=== PATIENT | male | born 1935 | race Caucasian/White ===

== ENCOUNTER 2017-02-09 10:29 | Inpatient (IN) | payer OTHER ==
[2017-02-09 10:36] VITALS: BMI 29.4
--- NOTE | 2017-02-09 10:45 | PDOC ---
History of Present Illness - General Chief Complaint: Respiratory Stated Complaint: SOB Time Seen by Provider: 02/09/17 10:44 History Source: Patient Exam Limitations: No Limitations - History of Present Illness Initial Comments: 02/09/17 11:18 Agent came to emergency department with acute onset of shortness of breath that woke him from sleep this morning approximately 3:00. has no chest pain, palpitations, fevers. Is a [id number] smoker, and was recently seen by an ENT doctor and prescribed nasal spray for his congestion. ears have been ""clogged" but does not feel this nasal spray is been helpful. Patient does not use home oxygen, does not have any albuterol treatments, has been told has COPD but does not take any medication for for relief. Is still currently smoking 02/09/17 11:28 Timing/Duration: reports: changing over time Severity: reports: moderate Associated Symptoms: reports: cough, nasal congestion, nasal drainage. denies: fever/chills Past History - Travel Traveled outside of the country in the last 30 days: No Close contact w/someone who was outside of country & ill: No - Past Medical History Allergies/Adverse Reactions: Allergies Allergy/AdvReac Type Severity Reaction Status Date / Time No Known Allergies Allergy Verified 02/09/17 10:36 Home Medications: Ambulatory Orders Levothyroxine [Synthroid -] 25 mcg PO DAILY 02/09/17 Lisinopril [Prinivil] 20 mg PO DAILY 02/09/17 Simvastatin [Zocor -] 20 mg PO HS 02/09/17 HTN: Yes Hypercholesterolemia: Yes Thyroid Disease: Yes - Psycho/Social/Smoking Cessation Hx Anxiety: No Suicidal Ideation: No Smoking History: Current every day smoker Number of Cigarettes Smoked Daily: 3 Information on smoking cessation initiated: No Hx Alcohol Use: No Drug/Substance Use Hx: No Substance Use Type: None Review of Systems - Review of Systems Able to Perform ROS?: Yes Is the patient limited Vietnamese proficient: Yes Constitutional: Yes: Symptoms Reported, See HPI, Malaise. No: Fever HEENTM: Yes: Symptoms Reported, See HPI, Ear Pain (ear congestion), Nose Congestion Respiratory: Yes: Symptoms reported, See HPI, Cough (moist productive cough of thick white phlegm), Shortness of Breath, SOB with Exertion. No: Wheezing Cardiac (ROS): Yes: See HPI. No: Symptoms Reported, Chest Pain, Irregular Heart Rate, Lightheadedness, Palpitations, Syncope ABD/GI: Yes: See HPI, Nausea. No: Symptoms Reported, Constipated, Diarrhea, Poor Appetite Musculoskeletal: Yes: Symptoms Reported Integumentary: Yes: See HPI. No: Symptoms Reported Neurological: Yes: See HPI. No: Symptoms reported, Headache, Numbness, Paresthesia All Other Systems: Reviewed and Negative *Physical Exam - Vital Signs Last Vital Signs Temp Pulse Resp BP Pulse Ox 98.8 F 95 H 20 151/99 96 02/09/17 10:33 02/09/17 10:33 02/09/17 10:33 02/09/17 10:33 02/09/17 10:33 - Physical Exam General Appearance: Yes: Nourished, Appropriately Dressed, Apparent Distress, Mild Distress HEENT: positive: Normal ENT Inspection, TMs Normal. negative: Pharynx Normal Neck: positive: Supple, Lymphadenopathy (R), Lymphadenopathy (L) Respiratory/Chest: positive: Lungs Clear (but very diminished, no wheezing or retractions noted no obvious respiratory distress, but very diminished). negative: Normal Breath Sounds Cardiovascular: positive: Regular Rhythm, Regular Rate ( ) Gastrointestinal/Abdominal: positive: Normal Bowel Sounds, Soft. negative: Tender Musculoskeletal: positive: Normal Inspection. negative: CVA Tenderness Extremity: positive: Normal Capillary Refill, Normal Inspection, Normal Range of Motion Integumentary: positive: Dry, Warm, Pale Neurologic: positive: crm solution architect II-XII NML intact, Fully Oriented, Alert, Normal Mood/ Affect, Normal Response, Motor Strength /5 ED Treatment Course - LABORATORY CBC & Chemistry Diagram: 02/09/17 11:22 02/09/17 11:22 Progress Note - Progress Note Progress Note: Shortness of breath, possible COPD exacerbation. Will obtain labs, provide duo nebs and steroids, and obtain chest x-ray. Medical Decision Making - Medical Decision Making 02/09/17 12:53 She states feels much improved, breathing is better after first DuoNeb and prednisone, continue pending some labs once results will discuss case with Dr. Mcdaniel for further instruction regarding admission. 02/09/17 13:04 All labs returned, noted CPK and cardiac MB elevated. EKG is sinus rhythm with low voltage with no obvious ST elevation or ischemia. No previous EKG to compare. Patient remains asymptomatic however due to laboratory elevations understands will need to be admitted to telemetry for further evaluation, serial enzymes and possible treatment. Discussed with family and patient understand need for admission 02/09/17 13:19 02/09/17 14:[address] Jose Gupta, cardiology per request of Dr. Foreman for Dr. Ambrose's service. Reviewed labs, and Lovenox 80 mg ordered, Lipitor 80 mg ordered, and we'll repeat enzymes/EKG at 4 PM. Patient updated to plan *DC/Admit/Observation/Transfer Diagnosis at time of Disposition: SOB (shortness of breath), Elevation of cardiac enzymes - Discharge Dispostion Admit: Yes - Referrals
[2017-02-09] MEDS ORDERED: ALBUTEROL SO4 2.5/IPRATROPIUM 0.5 INH SOL 3 ML VIAL.NEB. NEB ONE ×3 (11:17→12:52)
[2017-02-09] MEDS ORDERED: predniSONE 20 MG TABLET (UD) PO ONE (11:17)
[2017-02-09] MEDS ORDERED: predniSONE 20 MG TABLET (UD) ONE (11:31)
[2017-02-09 11:51] LABS: BASOPHIL 1.1 % (0-2.0); MCH 32.8 pg (25.7-33.7); MCHC 34.5 g/dl (32.0-35.9); MEAN CELL VOLUME 95.3 fl (80-96); NEUTROPHILS 64.7 % (42.8-82.8); PLATELET COUNT 181 K/MM3 (134-434); RDW 13.5 % (11.9-15.9)
[2017-02-09 12:22] LABS: ALBUMIN 4.2 g/dl (3.4-5.0); ANION GAP 8 (8-16); BILIRUBIN,TOTAL 0.8 mg/dL (0.2-1.0); CALCIUM 8.8 mg/dL (8.5-10.1); CO2 27 mmol/L (21-32); COCKROFT - GAULT 30.38; CREATININE 2.3 mg/dL (0.7-1.3); GLUCOSE,RANDOM 108 mg/dL (74-106); SGOT/AST 37 U/L (15-37); SGPT/ALT 22 U/L (12-78); TOT PROT 8.1 g/dl (6.4-8.2)
[2017-02-09 12:24] LABS: ALK PHOS 73 U/L (45-117); TROPONIN I < 0.02 ng/ml (0.00-0.05)
[2017-02-09] MEDS ORDERED: ASPIRIN 325 MG TABLET PO ONE (12:56)
[2017-02-09] MEDS ORDERED: ALBUTEROL SO4 0.083% IH SOL 2.5 MG/3 ML VIAL.NEB. NEB ONE (13:01)
[2017-02-09] MEDS ORDERED: ASPIRIN 325 MG TABLET ONE (13:02)
[2017-02-09] MEDS ORDERED: ATORVASTATIN CA 80 MG TABLET (FP) PO ONE (14:08)
[2017-02-09] MEDS ORDERED: ENOXAPARIN NA (PORCINE) 80 MG/0.8 ML DISP.SYRIN SQ SCH (14:15)
[2017-02-09] MEDS ORDERED: ENOXAPARIN NA (PORCINE) 80 MG/0.8 ML DISP.SYRIN SQ ONE (14:27)
[2017-02-09] MEDS ORDERED: ATORVASTATIN CA 80 MG TABLET (FP) ONE (14:27)
--- NOTE | 2017-02-09 14:29 | HP ---
CHIEF COMPLAINT: sob PCP: Dr. Foreman HISTORY OF PRESENT ILLNESS: 82 yea old male with PMHx htn, hld, lymphoma (11yrs ago), presents to the emergency room with shortness of breath that awoke him from sleep at 3 am. Patient sat up, which improved his symptoms, at around 9:30 am he called ambulance to take in to the ER. Denies chest pain, lightheadedness, weakness, dizziness, orthopnea, abdominal pain, leg swelling, fever, n/v/d. Patient is a 60yr smoker, currently smokes 4 cigarettes per day. Other complaint includes decreased hearing, gradual onset. Feels like ears are plugged. Was seen by ENT last week, prescribed spray that has not alleviated symtpoms ruthy, he was told it takes weeks to take effect. ER course was notable for: (1)troponin x1 negative; CKMB 11.12 (2)ECG NSR; prolonged QT , low voltage; no st-t wave changes; none to compare to (3)BUN/Cr 19/2.3 Recent Travel: no PAST MEDICAL HISTORY: htn, hld, hx of lymphoma s/p sx and chemotherapy, hypothyroid PAST SURGICAL HISTORY: lymphoma sx removal of tumor 2005; Social History:lives alone at home Smoking: yes 4 cigs per day/ 60year hx Alcohol:no Drugs: no Family History: Allergies No Known Allergies Allergy (Verified 02/09/17 10:36) HOME MEDICATIONS: Home Medications Medication Instructions Recorded Levothyroxine [Synthroid -] 25 mcg PO DAILY 02/09/17 Lisinopril [Prinivil] 20 mg PO DAILY 02/09/17 Simvastatin [Zocor -] 20 mg PO HS 02/09/17 REVIEW OF SYSTEMS CONSTITUTIONAL: Absent: fever, chills, diaphoresis, generalized weakness, malaise, loss of appetite, weight change HEENT: Absent: rhinorrhea, nasal congestion, throat pain, throat swelling, difficulty swallowing, mouth swelling, ear pain, eye pain, visual changes CARDIOVASCULAR: Absent: chest pain, syncope, palpitations, irregular heart rate, lightheadedness , peripheral edema RESPIRATORY: POsitive: shortness of breath Absent: cough, dyspnea with exertion, orthopnea, wheezing, stridor, hemoptysis GASTROINTESTINAL: Absent: abdominal pain, abdominal distension, nausea, vomiting, diarrhea, constipation, melena, hematochezia GENITOURINARY: Absent: dysuria, frequency, urgency, hesitancy, hematuria, flank pain, genital pain MUSCULOSKELETAL: Absent: myalgia, arthralgia, joint swelling, back pain, neck pain SKIN: Absent: rash, itching, pallor HEMATOLOGIC/IMMUNOLOGIC: Absent: easy bleeding, easy bruising, lymphadenopathy, frequent infections ENDOCRINE: Absent: unexplained weight gain, unexplained weight loss, heat intolerance, cold intolerance NEUROLOGIC: Absent: headache, focal weakness or paresthesias, dizziness, unsteady gait, seizure, mental status changes, bladder or bowel incontinence PSYCHIATRIC: Absent: anxiety, depression, suicidal or homicidal ideation, hallucinations. PHYSICAL EXAMINATION GENERAL: Awake, alert, and fully oriented, in no acute distress. HEAD: Normal with no signs of trauma. EYES: Pupils equal, round and reactive to light, extraocular movements intact, sclera anicteric, conjunctiva clear. No lid lag. EARS, NOSE, THROAT: Ears normal, nares patent, oropharynx clear without exudates. Moist mucous membranes. NECK: Normal range of motion, supple without lymphadenopathy, JVD, or masses. LUNGS: decreased breath sounds at bases , expiratory wheezes upper and middle lobes, and no crackles. No accessory muscle use. HEART: Regular rate and rhythm, normal S1 and S2 without murmur, rub or gallop. ABDOMEN: Soft, nontender, not distended, normoactive bowel sounds, no guarding, no rebound, no masses. No hepatomegaly or splenomegaly. MUSCULOSKELETAL: Normal range of motion at all joints. No bony deformities or tenderness. No CVA tenderness. UPPER EXTREMITIES: 2+ pulses, warm, well-perfused. No cyanosis. No clubbing. No peripheral edema. LOWER EXTREMITIES: 2+ pulses, warm, well-perfused. No calf tenderness. No peripheral edema. NEUROLOGICAL: Cranial nerves II-XII intact. Normal speech. Normal gait. PSYCHIATRIC: Cooperative. Good eye contact. Appropriate mood and affect. SKIN: Warm, dry, normal turgor, no rashes or lesions noted, normal capillary refill. ASSESSMENT/PLAN: This is a 82 yea old male with pmhx of htn, hld, lymphoma s/p sx and chemotherapy in 2005, presents to the emergengy room with sob while sleeping. Found to have elevated ckmb in ER. Acute kidney injury, no known kidney disease. # sob secondary to COPD from smoking ; r/o ACS (due to eleved CKMB) vs effect from kidney injury -troponin x1 wnl; ckmb 11.12 (elevated); trend f/u cardiac profile -asa -metoprolol 12.5 bid -statin -ecg ; no st t wave changes; low voltage; prolnged QT; none to compare; q waves -echo pending -1x full dose lovenox was given in ER -check TSH, lipid profile -albuterol/iptropium q4h prm ; 60mg prednisone given in ER #acute kidney injury: -baseline unknown -BUN/Cr 19/2.3 -denies trouble urinating or renal hx -gentle hydration -hold and nephrotoxic drugs -urine studies -bladder scan post void -renal US #current tobacco user: -counselled on smoking cessation/patch offered #hypothyroid s/p sx from lymphona 2005 -synthroid 50mcg qd FEN: Fluids: IVF 75mls NS Electrolytes: wnl Diet: npo after midnight VTE prophylaxis: lovenox in ER; none for now Disposition: cardiac monitoring Visit type - Emergency Visit Emergency Visit: Yes ED Registration Date: 02/09/17 Care time: The patient presented to the Emergency Department on the above date and was hospitalized for further evaluation of their emergent condition. - New Patient This patient is new to me today: Yes Date on this admission: 02/09/17 - Critical Care Critical Care patient: No
[2017-02-09] MEDS ORDERED: ALBUTEROL SO4 0.083% IH SOL 2.5 MG/3 ML VIAL.NEB. NEB PRN (14:40)
[2017-02-09] MEDS ORDERED: SODIUM CHLORIDE 1,000 ML IV SCH (14:45)
[2017-02-09] MEDS: SODIUM CHLORIDE 1,000 ML IV SCH (15:42)
--- NOTE | 2017-02-09 16:22 | PN ---
Teaching Attending Note Name of Resident: Indy Rosales ATTENDING PHYSICIAN STATEMENT I saw and evaluated the patient. I reviewed the resident's note and discussed the case with the resident. I agree with the resident's findings and plan as documented. SUBJECTIVE:c/o SOB that woke him out of sleep at 0300 this AM. he said he walked to his couch and several minutes later it settled down. he had another episode of sob which prompted him to call 911. no assoc symptoms of CP, numbness /tingling of extremities, or palpitations. never similar episodes in the past. was recently started on flonase by ENT for ear congestion? and completed zpack over 2 weeks ago. was in normal state of health days leading up to this AM. is able to walk 1 flight of stairs prior to becoming SOB. no cardiac workup in the past. no significant family hx of CAD (brother had CABG at 67) +smoker denies CP, dysuria, urinary frequency, N/V/C/D fever or chills had labs done last month at PMD office was told everything was good OBJECTIVE: Last Vital Signs Temp Pulse Resp BP Pulse Ox 98.8 F 90 18 139/90 98 02/09/17 10:33 02/09/17 12:10 02/09/17 12:10 02/09/17 12:10 02/09/17 12:10 General NAD CV S1 S2 RRR no murmur/rub/gallop Lungs CTA B/L no wheezing/rales/rhonchi Extremities no pedal edema ASSESSMENT AND PLAN: 82yo M with PMH HTN, dyslipidemia, hypothyroid and lymphoma s/p chemo (no RTx) presented to the ER and was admitted for further evaluation of their emergent condition 1. SOB- now resolved. CKMB elevated but CK is not proportionatly elevated and troponin negative. given this is 8 hours after presentation of SOB (which can be angina equivalent) low suspicion for cardiac etiology of cause. received lovenox and asa in the ED.(start betablocker to complete treatment for ACS if thats what ER considering) place on cardiac monitoring. trend cardiac markers Q6H. check lipid panel. check echo. cardio consulted. will wait on starting hep ggt until have uptrending troponins. will hold lovenox in the setting of APM 2. PAM- unknown Cr baseline. check urine studies, bladder scan, kidney u/s. low dose IVF. trend Cr. avoid nephrotoxic medications 3. hypothyroid- check tsh. cont LT4 4. HTN- controlled. cont home medications. 5. Lymphoma- did not receive RTx therapy. not on current therapy 6. DVT ppx- received lovenox
--- NOTE | 2017-02-09 17:12 | EKG ---
Test Reason : Blood Pressure : / mmHG Vent. Rate : 086 BPM Atrial Rate : 086 BPM P-R Int : 192 ms QRS Dur : 084 ms QT Int : 444 ms P-R-T Axes : 012 -61 056 degrees QTc Int : 531 ms NORMAL SINUS RHYTHM PULMONARY DISEASE PATTERN LEFT ANTERIOR FASCICULAR BLOCK CANNOT RULE OUT INFERIOR INFARCT (MASKED BY FASCICULAR BLOCK?) , AGE UNDETERMINED PROLONGED QT ABNORMAL ECG NO PREVIOUS ECGS AVAILABLE Confirmed by SHELLY MCCLAIN MD ([id number]) on 02/09/2017 5:11:37 PM Referred By: Confirmed By:SHELLY MCCLAIN MD
[2017-02-09 17:20] LABS: TROPONIN I < 0.02 ng/ml (0.00-0.05)
[2017-02-09] MEDS ORDERED: METOPROLOL TARTRATE 25 MG TABLET (FP) PO SCH (22:00)
[2017-02-09] MEDS ORDERED: ATORVASTATIN CA 10 MG TABLET (FP) PO SCH (22:00)
[2017-02-09] MEDS ORDERED: METOPROLOL TARTRATE 25 MG TABLET (FP) ONE (22:53)
[2017-02-10] MEDS ORDERED: LEVOTHYROXINE NA 25 MCG TABLET (FP) PO SCH (07:00)
[2017-02-10 07:15] LABS: BASOPHIL 0.4 % (0-2.0); EOSINOPHIL 0.1 % (0-4.5); MCH 33.4 pg (25.7-33.7); MCHC 34.9 g/dl (32.0-35.9); MEAN CELL VOLUME 95.8 fl (80-96); MEAN PLT VOLUME 6.4 fl (7.5-11.1); PLATELET COUNT 194 K/MM3 (134-434); RDW 13.3 % (11.9-15.9); WHITE BLOOD COUNT 7.7 K/mm3 (4.0-10.0)
[2017-02-10 07:28] LABS: BILIRUBIN,TOTAL 0.9 mg/dL (0.2-1.0); CALCIUM 8.3 mg/dL (8.5-10.1); COCKROFT - GAULT 30.38; CREATININE 2.3 mg/dL (0.7-1.3); MAGNESIUM 2.1 mg/dL (1.8-2.4); PHOSPHOROUS 2.8 mg/dL (2.5-4.9); TOT PROT 7.7 g/dl (6.4-8.2)
[2017-02-10 07:35] LABS: THYROID STIMULATING HORMONE 55.8 uIU/ml (0.358-3.74)
[2017-02-10 07:54] LABS: TROPONIN I < 0.02 ng/ml (0.00-0.05)
--- NOTE | 2017-02-10 08:42 | CON.CARD ---
Consult Consult Specialty:: cardio Referred by:: hospitalist Reason for Consultation:: sob - History of Present Illness Chief Complaint: sob History of Present Illness: 82 yo male here with sob. SOB woke him out of sleep on DOA. associated with intense anxiety/panic. no cp/tightness,heaviness/pressure. sx's improved after nebs and prednisone in ER (audible wheezing on exam) no tachycardia, sats normal on RA no more sob at present denies palpitations, leg swelling PMH: HTN HPL +active cigs (60 yrs) family hx of CAD (brother had CABG at 67) +smoker - Alcohol/Substance Use Hx Alcohol Use: No - Smoking History Smoking history: Current every day smoker Aproximately how many cigarettes per day: 3 Home Medications - Allergies Allergies/Adverse Reactions: Allergies Allergy/AdvReac Type Severity Reaction Status Date / Time No Known Allergies Allergy Verified 02/09/17 10:36 - Home Medications Home Medications: Ambulatory Orders Levothyroxine [Synthroid -] 25 mcg PO DAILY 02/09/17 Lisinopril [Prinivil] 20 mg PO DAILY 02/09/17 Simvastatin [Zocor -] 20 mg PO HS 02/09/17 Review of Systems - Review of Systems Constitutional: denies: Chills, Fever Eyes: denies: Eye Pain HENT: denies: Nasal Congestion Neck: denies: Stiffness Cardiovascular: denies: Palpitations Respiratory: denies: Hemoptysis Gastrointestinal: denies: Diarrhea, Rectal Bleeding Genitourinary: denies: Burning, Hematuria Musculoskeletal: denies: Muscle Pain Integumentary: denies: Rash Neurological: denies: Numbness, Seizure, Syncope Endocrine: denies: Excessive Sweating Hematology/Lymphatic: denies: Excessive Bleeding Vital Signs: Vital Signs Temperature 98.0 F 02/09/17 19:31 Pulse Rate 85 02/10/17 07:27 Respiratory Rate 18 02/10/17 07:27 Blood Pressure 157/85 02/10/17 07:27 O2 Sat by Pulse Oximetry (%) 95 02/10/17 07:27 Constitutional: Yes: Well Nourished, No Distress Eyes: No: Sclera Icterus HENT: No: Nasal Congestion Neck: No: Decreased ROM Respiratory: Yes: CTA Bilaterally. No: Accessory Muscle Use, Wheezes (faint L base) Gastrointestinal: Yes: Normal Bowel Sounds. No: Distention, Hepatomegaly, Palpable Mass, Tenderness Cardiovascular: Yes: Regular Rate and Rhythm JVD: No Carotid Bruit: No PMI: Non-Displaced Heart Sounds: Yes: S1, S2. No: Gallop Murmur: No: Systolic Murmur, Diastolic Murmur Musculoskeletal: Yes: Other (No kyphosis) Extremities: No: Cold, Cyanosis Edema: No Peripheral Pulses: 2+ Left Carotid, 2+ Right Carotid, 2+ Left Doralis Pedis, 2+ Right Dorsalis Pedis Integumentary: No: Jaundice Neurological: Yes: Alert, Oriented (x3) Psychiatric: No: Agitated - Other Data Labs, Other Data: CBC, BMP 02/10/17 06:30 02/10/17 06:30 Troponin, BNP 02/09/17 02/10/17 16:40 06:30 Troponin I < 0.02 < 0.02 Troponin, BNP 02/09/17 02/10/17 16:40 06:30 Troponin I < 0.02 < 0.02 Laboratory Tests 02/09/17 02/09/17 02/10/17 11:22 16:40 06:30 WBC 7.7 D Hgb 13.8 Plt Count 194 Sodium Potassium Carbon Dioxide BUN Creatinine AST ALT Creatine Kinase 815 H 819 H CK-MB (CK-2) 11.122 H 10.021 H Troponin I < 0.02 < 0.02 B-Natriuretic Peptide 102.61 Cholesterol Total LDL Cholesterol HDL Cholesterol TSH 02/10/17 02/10/17 06:30 06:30 WBC Hgb Plt Count Sodium 138 Potassium 5.0 Carbon Dioxide 24 BUN 24 H D Creatinine 2.3 H AST 47 H D ALT 22 Creatine Kinase 1254 H D CK-MB (CK-2) Troponin I < 0.02 B-Natriuretic Peptide Cholesterol 216 H Total LDL Cholesterol 146 H HDL Cholesterol 54 TSH 55.80 H ekg 1: NSR, L axis; no path Qs; nonsp TWAs (no old) ekg 2: no change Imaging - Results Chest X-ray: Report Reviewed (clear) Assessment/Plan acute SOB/PND: -sx's improved with nebs and prednisone in ER--likely copd (active smoker), ? bronchospastic component -BNP low (102) -cxr with clear lungs and pleura -no evidence chf on exam -troponin negative x 3--THIS RULES OUT NSTEMI, regardless of what cpk and MB fraction are (CK is coming from skeletal muscle) -not impossible that unstable angina could present this way, though sx response to airways tx makes copd/bronchospasm more likely -will do dobutamine nuclear stress test prior to discharge given high clinical risk factor burden for CAD (received short acting metoprolol (tartrate) at 11pm last night--should be ok for dobutamine today) -f/u echo -given no other clinical findings suggestive of PE, and no recent immobility, will defer V/Q--check LE vein duplex to r/o DVT -copd tx (+/- pulm consult) per hospitalist HTN: -bp controlled -hold home MALKA given unknown chronicity of hi creatinine -start amlodipine (after stress test completed) hypothyroid: -TSH 50 -per hospitalist HPL: -lipids not well controlled (LDL 140s) -on simva 20 at home--? if taking -change to atorva 20 (more potent) renal insufficiency: -creat 2.3 here, no priors -trend labs -workup (+/- renal consult) per hospitalist + active cigs -risks reviewed, cessation advised lymphoma: -? activity of dz/prior tx
[2017-02-10] MEDS ORDERED: amLODIPine BESYLATE 5 MG TABLET (FP) PO SCH (10:00)
[2017-02-10] MEDS ORDERED: LEVOTHYROXINE NA 25 MCG TABLET (FP) ONE (10:08)
[2017-02-10] MEDS ORDERED: amLODIPine BESYLATE 5 MG TABLET (FP) ONE (10:08)
[2017-02-10] MEDS ORDERED: DIPYRIDAMOLE 50 MG/10 ML VIAL IVPB ONE (11:25)
--- NOTE | 2017-02-10 11:25 | EKG ---
Test Reason : Blood Pressure : / mmHG Vent. Rate : 092 BPM Atrial Rate : 092 BPM P-R Int : 200 ms QRS Dur : 082 ms QT Int : 358 ms P-R-T Axes : 004 -63 042 degrees QTc Int : 442 ms POOR DATA QUALITY, INTERPRETATION MAY BE ADVERSELY AFFECTED NORMAL SINUS RHYTHM LEFT ANTERIOR FASCICULAR BLOCK POSSIBLE LATERAL INFARCT , AGE UNDETERMINED CANNOT RULE OUT INFERIOR INFARCT (CITED ON OR BEFORE 09-FEB-2017) ABNORMAL ECG WHEN COMPARED WITH ECG OF 09-FEB-2017 11:35, QT HAS SHORTENED Confirmed by JEANE ZAPATA MD ([id number]) on 02/10/2017 11:25:21 AM Referred By: Confirmed By:JEANE ZAPATA MD
[2017-02-10] MEDS ORDERED: ALBUTEROL SO4 0.083% IH SOL 2.5 MG/3 ML VIAL.NEB. NEB ONE (14:10)
[2017-02-10 14:30] LABS: FREE T4 0.38 ng/dl (0.76-1.16)
[2017-02-10] MEDS ORDERED: WATER IVPB ONE (15:15)
[2017-02-10] MEDS ORDERED: DIPYRIDAMOLE STRESS TEST IVPB ONE (15:15)
[2017-02-10] MEDS ORDERED: DEXTROSE 5% IVPB ONE (15:15)
[2017-02-10] MEDS: SODIUM CHLORIDE 1,000 ML IV SCH ×2 (15:57→19:30)
--- NOTE | 2017-02-10 17:11 | PN ---
Teaching Attending Note Name of Resident: Indy Rosales ATTENDING PHYSICIAN STATEMENT I saw and evaluated the patient. I reviewed the resident's note and discussed the case with the resident. I agree with the resident's findings and plan as documented. SUBJECTIVE:currently asymptomatic. states SOB has resolved. denies difficulty urinating. denies CP, fever, chills, cough, hematuria, N/V/C/D OBJECTIVE: Last Vital Signs Temp Pulse Resp BP Pulse Ox 98.0 F 74 19 125/89 95 02/09/17 19:31 02/10/17 13:45 02/10/17 13:45 02/10/17 13:45 02/10/17 13:45 General NAD CV S1 S2 RRR no murmur/rub/gallop Lungs CTA B/L no wheezing/rales/rhonchi abdomen soft NT/ND no suprapubic tenderness/distention. obese ASSESSMENT AND PLAN: 82yo M with PMH HTN, dyslipidemia, hypothyroid and lymphoma s/p chemo (no RTx) presented to the ER and was admitted for further evaluation of their emergent condition 1. SOB- now resolved. CKMB stable. troponins neg x3. stress test done and negative for ischemia. echo showing diastolic relaxation. cardio on board. optimize medications. statin increased. can d/c tele monitor. 2. PAM- Cx 1.16 last year per PMD. FeNa <1. u/s showing R sided hydro. bladder scan of 370 after putting "out a good amount" will place lucas and monitor I&O. likely obstructed. cont low dose IVF. repeat Cr. will need to consider CT to evlaute for obstruction 3. hypothyroid- TSH 55. claims medication compliance. increased synthroid to 50mcg 4. HTN- controlled. cont home medications. 5. Lymphoma- did not receive RTx therapy. not on current therapy 6. DVT ppx- received lovenox
[2017-02-10] MEDS ORDERED: ALBUTEROL SO4 0.083% IH SOL 2.5 MG/3 ML VIAL.NEB. NEB PRN (18:27)
--- NOTE | 2017-02-10 20:33 | PN ---
Physical Exam: SUBJECTIVE: Patient seen and examined, no new complaints, sob improved. Stress test today. OBJECTIVE: Vital Signs Period Temp Pulse Resp BP Sys/Hargrove Pulse Ox Last 24 Hr 97.9 F 57-85 17-19 122-157/75-99 95-96 GENERAL: The patient is awake, alert, and fully oriented, in no acute distress. HEAD: Normal with no signs of trauma. EYES: PERRL, extraocular movements intact, sclera anicteric, conjunctiva clear. No ptosis. ENT: Ears normal, nares patent, oropharynx clear without exudates, moist mucous membranes. NECK: Trachea midline, full range of motion, supple. LUNGS: decreased breath sounds scattered wheeze on expiration HEART: Regular rate and rhythm, S1, S2 without murmur, rub or gallop. ABDOMEN: Soft, nontender, nondistended, normoactive bowel sounds, no guarding, no rebound, no hepatosplenomegaly, no masses. EXTREMITIES: 2+ pulses, warm, well-perfused, no edema. NEUROLOGICAL: Cranial nerves II through XII grossly intact. Normal speech, gait not observed. PSYCH: Normal mood, normal affect. SKIN: Warm, dry, normal turgor, no rashes or lesions noted Laboratory Results - last 24 hr 02/09/17 02/10/17 02/10/17 19:00 06:30 06:30 WBC 7.7 D RBC 4.13 Hgb 13.8 Hct 39.6 MCV 95.8 MCHC 34.9 RDW 13.3 Plt Count 194 MPV 6.4 L Neutrophils % 73.0 Lymphocytes % 17.0 Monocytes % 9.5 Eosinophils % 0.1 D Basophils % 0.4 Sodium 138 Potassium 5.0 Chloride 103 Carbon Dioxide 24 Anion Gap 11 BUN 24 H D Creatinine 2.3 H Creat Clearance w eGFR 27.43 Random Glucose 111 H Calcium 8.3 L Phosphorus 2.8 Magnesium 2.1 Total Bilirubin 0.9 AST 47 H D ALT 22 Alkaline Phosphatase 66 Creatine Kinase Creatine Kinase Index CK-MB (CK-2) CK-MB (CK-2) Rel Index Troponin I Total Protein 7.7 Albumin 4.0 Triglycerides 122 Cholesterol 216 H Total LDL Cholesterol 146 H HDL Cholesterol 54 TSH 55.80 H Free T4 0.38 L Urine Creatinine 308.0 02/10/17 02/10/17 02/10/17 06:30 06:30 13:55 WBC RBC Hgb Hct MCV MCHC RDW Plt Count MPV Neutrophils % Lymphocytes % Monocytes % Eosinophils % Basophils % Sodium Potassium Chloride Carbon Dioxide Anion Gap BUN Creatinine Creat Clearance w eGFR Random Glucose Calcium Phosphorus Magnesium Total Bilirubin AST ALT Alkaline Phosphatase Creatine Kinase 1254 H D Creatine Kinase Index 1.0 CK-MB (CK-2) 12.571 H Cancelled CK-MB (CK-2) Rel Index Cancelled Troponin I < 0.02 Total Protein Albumin Triglycerides Cholesterol Total LDL Cholesterol HDL Cholesterol TSH Free T4 Cancelled Urine Creatinine Active Medications Generic Name Dose Route Start Last Admin Trade Name Freq PRN Reason Stop Dose Admin Albuterol Sulfate 1 amp 02/10/17 18:27 Ventolin 0.083% Nebulizer Soln - NEB Q4H PRN SHORT OF BREATH/WHEEZING Atorvastatin Calcium 20 mg 02/10/17 22:00 Lipitor - PO HS [facility] Sodium Chloride 1,000 mls @ 75 mls/hr 02/10/17 18:27 Normal Saline - IV ASDIR [facility] Levothyroxine Sodium 50 mcg 02/11/17 07:00 Synthroid - PO DAILY@0700 [facility] ASSESSMENT/PLAN: This is a 82 yea old male with pmhx of htn, hld, lymphoma s/p sx and chemotherapy in 2005, presents to the emergengy room with sob while sleeping. Found to have elevated ckmb in ER. Acute kidney injury, no known kidney disease. # sob secondary to COPD from smoking ; ACS ruled out -troponins wnl; -ecg: no st t wave changes; low voltage; prolonged QT; none to compare; q waves -echo: LV borderline dilated; LVSF wnl; mild aortic root dilitation;trace pulm regurg; doppler flow pattern suggestive of impaired LV relaxation; LA and RA mild dilation -Doppler negative BL for dvt -Dobutaime stress today; negative for ischemia -cont asa -metoprolol 12.5 bid -atovastatin 20mg qd -start amlodipine 5mg qd -cario consulted #COPD: -albuterol/iptropium q4h prm ; 60mg prednisone given in ER -cont 40mg qd taper down by ten daily #acute kidney injury: -baseline 1.16 according to PMD -BUN/Cr 19/2.3 -FeNa <1; ML obstructive process -cont gentle hydration -hold and nephrotoxic drugs -urine studies -bladder scan post void 370' place lucas monitor I/O -renal US showing right hydronephrosis; dilation of the right ureter; kidney size wnl; mutiple b/l cysts one measuring 9cm #current tobacco user: -counselled on smoking cessation/patch offered #hypothyroid s/p sx from lymphoma 2006 -TSH 55 -increased synthroid to 50mcg qd; was compliant with medications at home FEN: Fluids: IVF 75mls NS Electrolytes: wnl Diet: low na diet VTE prophylaxis: Disposition: pending renal function Visit type - Emergency Visit Emergency Visit: Yes ED Registration Date: 02/09/17 Care time: The patient presented to the Emergency Department on the above date and was hospitalized for further evaluation of their emergent condition. - New Patient This patient is new to me today: No - Critical Care Critical Care patient: No
[2017-02-10] MEDS ORDERED: ATORVASTATIN CA 20 MG TABLET (FP) PO SCH (22:00)
[2017-02-10] MEDS: ATORVASTATIN CA 20 MG TABLET (FP) PO SCH (22:54)
[2017-02-11] MEDS: SODIUM CHLORIDE 1,000 ML IV SCH ×2 (02:43→22:00)
[2017-02-11] MEDS: LEVOTHYROXINE NA 50 MCG TABLET (FP) PO SCH (06:17)
[2017-02-11] MEDS ORDERED: LEVOTHYROXINE NA 50 MCG TABLET (FP) PO SCH (07:00)
[2017-02-11 07:46] LABS: MCHC 34.2 g/dl (32.0-35.9); MEAN CELL VOLUME 96.3 fl (80-96); MEAN PLT VOLUME 6.3 fl (7.5-11.1); PLATELET COUNT 152 K/MM3 (134-434); RDW 13.5 % (11.9-15.9); WHITE BLOOD COUNT 6.9 K/mm3 (4.0-10.0)
[2017-02-11 08:30] LABS: CALCIUM 7.9 mg/dL (8.5-10.1); COCKROFT - GAULT 31.76; CREATININE 2.2 mg/dL (0.7-1.3)
[2017-02-11] MEDS: amLODIPine BESYLATE 5 MG TABLET (FP) PO SCH (09:52)
[2017-02-11] MEDS: HEPARIN NA (PORCINE) 5,000 UNITS/ML 1ML VIAL SQ SCH ×3 (09:52→21:21)
[2017-02-11] MEDS ORDERED: predniSONE 20 MG TABLET (UD) PO SCH (10:00)
--- NOTE | 2017-02-11 14:52 | CONSULT ---
Consult Consult Specialty:: Nephrology Reason for Consultation:: PAM - Alcohol/Substance Use Hx Alcohol Use: No - Smoking History Smoking history: Current every day smoker Have you smoked in the past 12 months: No Aproximately how many cigarettes per day: 3 Home Medications - Allergies Allergies/Adverse Reactions: Allergies Allergy/AdvReac Type Severity Reaction Status Date / Time No Known Allergies Allergy Verified 02/09/17 10:36 - Home Medications Home Medications: Ambulatory Orders Lisinopril [Prinivil] 20 mg PO DAILY 02/09/17 Amlodipine Besylate [Norvasc -] 5 mg PO DAILY tablet 02/12/17 Budesonide/Formeterol Fumarate [SYMBICORT 160/4.5mcg -] 1 inh PO DAILY #1 cannister 02/12/17 Levothyroxine [Synthroid -] 50 mcg PO DAILY@0700 #30 tablet 02/12/17 Prednisone [Deltasone -] 10 mg PO ONCE #1 tablet 02/12/17 Physical Exam Vital Signs: Vital Signs Temperature 98.0 F 02/11/17 14:00 Pulse Rate 68 02/11/17 14:00 Respiratory Rate 17 02/11/17 14:00 Blood Pressure 112/82 02/11/17 10:00 O2 Sat by Pulse Oximetry (%) 96 02/11/17 09:00 Labs: CBC, BMP 02/11/17 06:40 02/11/17 06:40 Assessment/Plan PLEASE SEE OTHER CONSULT FORM. THIS ONE WAS CREATED IN ERROR.
--- NOTE | 2017-02-11 15:43 | PN ---
Progress Note (short form) - Note Progress Note: s: no cp sob palps dizzy, wants to go home, feels well o: Vital Signs Period Temp Pulse Resp BP Sys/Hargrove Pulse Ox Last 24 Hr 97.9 F-98.2 F 62-78 16-20 112-152/78-99 95-96 Constitutional: Yes: Well Nourished, No Distress Eyes: No: Sclera Icterus HENT: No: Nasal Congestion Respiratory: Yes: CTA Bilaterally. No: Accessory Muscle Use, Wheezes Gastrointestinal: Yes: Normal Bowel Sounds. No: Distention, Hepatomegaly, Palpable Mass, Tenderness Cardiovascular: Yes: Regular Rate and Rhythm JVD: No Heart Sounds: Yes: S1, S2. No: Gallop Murmur: No: Systolic Murmur, Diastolic Murmur Extremities: No: Cold, Cyanosis Edema: No Integumentary: No: Jaundice Neurological: Yes: Alert, Oriented (x3) Psychiatric: No: Agitated Current Medications Generic Name Dose Route Start Last Admin Trade Name Freq PRN Reason Stop Dose Admin Albuterol Sulfate 1 amp 02/10/17 18:27 Ventolin 0.083% Nebulizer Soln - NEB Q4H PRN SHORT OF BREATH/WHEEZING Amlodipine Besylate 5 mg 02/11/17 10:00 02/11/17 09:52 Norvasc - PO 5 mg DAILY LON Administration Atorvastatin Calcium 20 mg 02/10/17 22:00 02/10/17 22:54 Lipitor - PO 20 mg HS LON Administration Heparin Sodium (Porcine) 5,000 unit 02/11/17 10:00 02/11/17 15:27 Heparin - SQ Not Given TID LON Sodium Chloride 1,000 mls @ 75 mls/hr 02/10/17 18:27 02/11/17 02:43 Normal Saline - IV 75 mls/hr ASDIR LON Administration Levothyroxine Sodium 50 mcg 02/11/17 07:00 02/11/17 06:17 Synthroid - PO 50 mcg DAILY@0700 LON Administration Prednisone 40 mg 02/11/17 10:00 02/11/17 09:52 Deltasone - PO 40 mg DAILY LON Administration CBC, BMP 02/11/17 06:40 02/11/17 06:40 ekg 1: NSR, L axis; no path Qs; nonsp TWAs (no old) ekg 2: no change mibi 02/2017: nl mpi, nl lvef echo 02/2017: nl lv/rv, barby, mild mr, mild ar, mild ao root dil Assessment/Plan acute SOB/PND: -sx's improved with nebs and prednisone in ER--likely copd (active smoker), ? bronchospastic component -BNP low (102) -cxr with clear lungs and pleura -no evidence chf on exam -troponin negative x 3--THIS RULES OUT NSTEMI, regardless of what cpk and MB fraction are (CK is coming from skeletal muscle) -not impossible that unstable angina could present this way, though sx response to airways tx makes copd/bronchospasm more likely -echo and mibi here both unremarkable -copd tx (+/- pulm consult) per hospitalist HTN: -cont norvasc -hold home MALKA given unknown chronicity of hi creatinine hypothyroid: -TSH 50 -per hospitalist HPL: -lipids not well controlled (LDL 140s) -on simva 20 at home--? if taking -changed to atorva 20 (more potent) renal insufficiency: -creat 2.3 here, no priors -workup (+/- renal consult) per hospitalist + active cigs -risks reviewed, cessation advised
--- NOTE | 2017-02-11 15:48 | PN ---
Teaching Attending Note Name of Resident: Indy Rosales ATTENDING PHYSICIAN STATEMENT I saw and evaluated the patient. I reviewed the resident's note and discussed the case with the resident. I agree with the resident's findings and plan as documented. SUBJECTIVE: OBJECTIVE: Vital Signs Period Temp Pulse Resp BP Sys/Hargrove Pulse Ox Last 24 Hr 97.9 F-98.2 F 62-78 16-20 112-152/78-99 95-96 ASSESSMENT AND PLAN: 82yo M with PMH HTN, dyslipidemia, hypothyroid and lymphoma s/p chemo (no RTx) presented to the ER and was admitted for further evaluation of their emergent condition 1. SOB- now resolved. CKMB stable. troponins neg x3. stress test done and negative for ischemia. echo showing diastolic relaxation. cardio on board. optimize medications. statin increased. can d/c tele monitor. 2. PAM- Cx 1.16 last year per PMD. FeNa <1. u/s showing R sided hydro. bladder scan of 370 after putting "out a good amount" will place lucas and monitor I&O. likely obstructed. cont low dose IVF. repeat Cr. will need to consider CT to evlaute for obstruction 3. hypothyroid- TSH 55. claims medication compliance. increased synthroid to 50mcg 4. HTN- controlled. cont home medications. 5. Lymphoma- did not receive RTx therapy. not on current therapy 6. DVT ppx- received lovenox
--- NOTE | 2017-02-11 16:26 | PN ---
Physical Exam: SUBJECTIVE: Patient seen and examined, frustrated, wanting to go home. Denies chest pain, sob, admits to no problems with urination. OBJECTIVE: Vital Signs Period Temp Pulse Resp BP Sys/Hargrove Pulse Ox Last 24 Hr 97.9 F-98.2 F 62-78 16-20 112-152/78-99 95-96 GENERAL: The patient is awake, alert, and fully oriented, in no acute distress. HEAD: Normal with no signs of trauma. LUNGS: Breath sounds equal decreased at lung base; wheeze improved, no crackles , no accessory muscle use. HEART: Regular rate and rhythm, S1, S2 without murmur, rub or gallop. ABDOMEN: Soft, nontender, nondistended, normoactive bowel sounds, no guarding, no rebound, no hepatosplenomegaly, no masses. EXTREMITIES: 2+ pulses, warm, well-perfused, no edema. NEUROLOGICAL: Cranial nerves II through XII grossly intact. Normal speech, gait not observed. PSYCH: Normal mood, normal affect. SKIN: Warm, dry, normal turgor, no rashes or lesions noted Laboratory Results - last 24 hr 02/11/17 02/11/17 02/11/17 06:40 06:40 06:40 WBC 6.9 RBC 3.80 L Hgb 12.5 Hct 36.6 MCV 96.3 H MCHC 34.2 RDW 13.5 Plt Count 152 D MPV 6.3 L Sodium 142 Potassium 4.8 Chloride 106 Carbon Dioxide 29 D Anion Gap 7 L BUN 28 H Creatinine 2.2 H Random Glucose 89 Calcium 7.9 L CK-MB (CK-2) 19.032 H Cancelled Active Medications Generic Name Dose Route Start Last Admin Trade Name Freq PRN Reason Stop Dose Admin Albuterol Sulfate 1 amp 02/10/17 18:27 Ventolin 0.083% Nebulizer Soln - NEB Q4H PRN SHORT OF BREATH/WHEEZING Amlodipine Besylate 5 mg 02/11/17 10:00 02/11/17 09:52 Norvasc - PO 5 mg DAILY LON Administration Atorvastatin Calcium 20 mg 02/10/17 22:00 02/10/17 22:54 Lipitor - PO 20 mg HS LON Administration Heparin Sodium (Porcine) 5,000 unit 02/11/17 10:00 02/11/17 15:27 Heparin - SQ Not Given TID LON Sodium Chloride 1,000 mls @ 75 mls/hr 02/10/17 18:27 02/11/17 02:43 Normal Saline - IV 75 mls/hr ASDIR LON Administration Levothyroxine Sodium 50 mcg 02/11/17 07:00 02/11/17 06:17 Synthroid - PO 50 mcg DAILY@0700 LON Administration Prednisone 20 mg 02/12/17 10:00 Deltasone - PO DAILY [facility] ASSESSMENT/PLAN: This is a 82 yea old male with pmhx of htn, hld, lymphoma s/p sx and chemotherapy in 2005, presents to the emergengy room with sob while sleeping. Found to have elevated ckmb in ER. Acute kidney injury, no known kidney disease. # sob secondary to COPD from smoking ; ACS ruled out -troponins wnl; -ecg: no st t wave changes; low voltage; prolonged QT; none to compare; q waves -echo: LV borderline dilated; LVSF wnl; mild aortic root dilitation;trace pulm regurg; doppler flow pattern suggestive of impaired LV relaxation; LA and RA mild dilation -Doppler negative BL for dvt -Dobutaime stress; negative for ischemia -cont asa -metoprolol 12.5 bid -atovastatin 20mg qd -start amlodipine 5mg qd #COPD: -albuterol/iptropium q4h prm ; 60mg prednisone given in ER -prednisone taper #acute kidney injury: -baseline 1.16 according to PMD -BUN/Cr 19/2.2 -FeNa <1; ML obstructive process -hold and nephrotoxic drugs -urine studies -bladder scan post void 370' ; patient is voiding -renal US showing right hydronephrosis; dilation of the right ureter; kidney size wnl; mutiple b/l cysts one measuring 9cm #current tobacco user: -counselled on smoking cessation/patch offered #hypothyroid s/p sx from lymphoma 2005 -TSH 55 -increased synthroid to 50mcg qd; was compliant with medications at home FEN: Fluids: po Electrolytes: wnl Diet: low na diet VTE prophylaxis: Disposition: pending renal function Visit type - Emergency Visit Emergency Visit: Yes ED Registration Date: 02/09/17 Care time: The patient presented to the Emergency Department on the above date and was hospitalized for further evaluation of their emergent condition. - New Patient This patient is new to me today: No - Critical Care Critical Care patient: No
[2017-02-11 16:42] LABS: URINE APPEARANCE CLEAR; URINE BILIRUBIN NEGATIVE (NEGATIVE); URINE COLOR COLORLESS; URINE GLUCOSE (UA) NEGATIVE (NEGATIVE); URINE KETONE NEGATIVE (NEGATIVE); URINE LEUK ESTERASE NEGATIVE (NEGATIVE); URINE NITRITE NEGATIVE (NEGATIVE); URINE PROTEIN NEGATIVE (NEGATIVE); URINE UROBILINOGEN NEGATIVE E.U./dl (0.2-1.0)
[2017-02-11 16:55] LABS: URINE BLOOD 2+ (NEGATIVE)
[2017-02-11 16:57] LABS: URINE MUCUS RARE; URINE RBC 1 /hpf (0-3); URINE WBC 1 /hpf (3-5)
--- NOTE | 2017-02-11 18:27 | CONSULT ---
Consult Consult Specialty:: Nephrology Reason for Consultation:: elevated creatinine - History of Present Illness Chief Complaint: shortness of breath History of Present Illness: Pt is an 82 year old male with pmhx of COPD, HTN, hypothyroidism and hyperlipidemia who presents to the ER with increasing shortness of breath that he says woke him up from sleep. He was admitted for treatment and workup. He was found to have elevated creatinine and I was called to evaluate him. He denies history of CKD. He denies dysuria or hematuria. He denies nsaid use. He was found to have hydronephrosis on renal ultrasound. He does not want any more workup in the hospital. - History Source History Provided By: Patient, Medical Record - Past Medical History Cardio/Vascular: Yes: HTN, Hyperlipdemia Pulmonary: Yes: COPD Endocrine: Yes: Hypothyroidism - Alcohol/Substance Use Hx Alcohol Use: No - Smoking History Smoking history: Current every day smoker Have you smoked in the past 12 months: No Aproximately how many cigarettes per day: 3 Home Medications - Allergies Allergies/Adverse Reactions: Allergies Allergy/AdvReac Type Severity Reaction Status Date / Time No Known Allergies Allergy Verified 02/09/17 10:36 - Home Medications Home Medications: Ambulatory Orders Levothyroxine [Synthroid -] 25 mcg PO DAILY 02/09/17 Lisinopril [Prinivil] 20 mg PO DAILY 02/09/17 Simvastatin [Zocor -] 20 mg PO HS 02/09/17 Family Disease History - Family Disease History Family History: Denies Review of Systems - Review of Systems Constitutional: reports: No Symptoms Eyes: reports: No Symptoms HENT: reports: No Symptoms Neck: reports: No Symptoms Cardiovascular: reports: Shortness of Breath. denies: Edema, Palpitations Respiratory: reports: Cough, SOB on Exertion, Wheezing Genitourinary: reports: No Symptoms Musculoskeletal: reports: No Symptoms Integumentary: reports: No Symptoms Neurological: reports: No Symptoms Endocrine: reports: No Symptoms Hematology/Lymphatic: reports: No Symptoms Psychiatric: reports: No Symptoms Physical Exam Vital Signs: Vital Signs Temperature 98.0 F 02/11/17 14:00 Pulse Rate 68 02/11/17 14:00 Respiratory Rate 17 02/11/17 14:00 Blood Pressure 112/82 02/11/17 10:00 O2 Sat by Pulse Oximetry (%) 96 02/11/17 09:00 Constitutional: Yes: Calm Eyes: Yes: Conjunctiva Clear HENT: Yes: Atraumatic Neck: Yes: Supple Cardiovascular: Yes: S1, S2 Respiratory: Yes: Wheezes Gastrointestinal: Yes: Soft Renal/: No: CVA Tenderness - Left, CVA Tenderness - Right Musculoskeletal: Yes: WNL Edema: No Neurological: Yes: Oriented Psychiatric: Yes: Oriented Labs: CBC, BMP 02/11/17 06:40 02/11/17 06:40 Laboratory Tests 02/09/17 02/10/17 02/11/17 11:22 06:30 06:40 WBC 6.9 Hgb 12.5 Sodium Potassium Chloride Carbon Dioxide Anion Gap BUN Creatinine 2.3 H 2.3 H Urine Color Urine Appearance Urine pH Ur Specific [place] Urine Protein Urine Glucose (UA) Urine Ketones Urine Blood Urine Nitrite Urine Bilirubin Urine Urobilinogen Ur Leukocyte Esterase Urine RBC Urine WBC 02/11/17 02/11/17 06:40 16:33 WBC Hgb Sodium 142 Potassium 4.8 Chloride 106 Carbon Dioxide 29 D Anion Gap 7 L BUN 28 H Creatinine 2.2 H Urine Color Colorless Urine Appearance Clear Urine pH 5.0 Ur Specific [place] 1.006 Urine Protein Negative Urine Glucose (UA) Negative Urine Ketones Negative Urine Blood 2+ H Urine Nitrite Negative Urine Bilirubin Negative Urine Urobilinogen Negative Ur Leukocyte Esterase Negative Urine RBC 1 Urine WBC 1 Imaging - Results Chest X-ray: Report Reviewed Ultrasound: Report Reviewed (right side hydronephrosis) Other: Report Reviewed (stress test negative) Problem List - Problems (1) SOB (shortness of breath) Code(s): R06.02 - SHORTNESS OF BREATH (2) CKD (chronic kidney disease) Code(s): N18.9 - CHRONIC KIDNEY DISEASE, UNSPECIFIED (3) Hypothyroidism Code(s): E03.9 - HYPOTHYROIDISM, UNSPECIFIED (4) Hypertension Code(s): I10 - ESSENTIAL (PRIMARY) HYPERTENSION (5) COPD (chronic obstructive pulmonary disease) Code(s): J44.9 - CHRONIC OBSTRUCTIVE PULMONARY DISEASE, UNSPECIFIED Assessment/Plan Current Medications Generic Name Dose Route Start Last Admin Trade Name Freq PRN Reason Stop Dose Admin Albuterol Sulfate 1 amp 02/10/17 18:27 Ventolin 0.083% Nebulizer Soln - NEB Q4H PRN SHORT OF BREATH/WHEEZING Amlodipine Besylate 5 mg 02/11/17 10:00 02/11/17 09:52 Norvasc - PO 5 mg DAILY LON Administration Atorvastatin Calcium 20 mg 02/10/17 22:00 02/10/17 22:54 Lipitor - PO 20 mg HS LON Administration Heparin Sodium (Porcine) 5,000 unit 02/11/17 10:00 02/11/17 15:27 Heparin - SQ Not Given TID [facility] Sodium Chloride 1,000 mls @ 75 mls/hr 02/10/17 18:27 02/11/17 02:43 Normal Saline - IV 75 mls/hr ASDIR LON Administration Levothyroxine Sodium 50 mcg 02/11/17 07:00 02/11/17 06:17 Synthroid - PO 50 mcg DAILY@0700 LON Administration Prednisone 20 mg 02/12/17 10:00 Deltasone - PO DAILY [facility] Impression 1. CKD vs PAM with unclear baseline 2. HTN 3. right side hydronephrosis 4. hypothyroidism 5. dyspnea 6. hyperlipidemia 7. microscopic hematuria Plan - recommend urology eval for hydro and hematuria - will need to obtain outpt records to evaluate baseline creatinine - elsa was switched over to amlodipine, will monitor renal function off of elsa - there was no protein detected on urine dipstick - pt would like workup as outpt, he can follow with me in the office - steroids with taper - will follow Dr Mcmahon
[2017-02-11] MEDS: ATORVASTATIN CA 20 MG TABLET (FP) PO SCH (21:19)
[2017-02-12 05:10] VITALS: TEMP 98.4
[2017-02-12] MEDS: LEVOTHYROXINE NA 50 MCG TABLET (FP) PO SCH (06:12)
[2017-02-12] MEDS: HEPARIN NA (PORCINE) 5,000 UNITS/ML 1ML VIAL SQ SCH (06:17)
[2017-02-12 07:42] LABS: BASOPHIL 0.5 % (0-2.0); EOSINOPHIL 0.7 % (0-4.5); MCH 32.8 pg (25.7-33.7); MCHC 34.1 g/dl (32.0-35.9); MEAN PLT VOLUME 6.3 fl (7.5-11.1); NEUTROPHILS 64.2 % (42.8-82.8); PLATELET COUNT 163 K/MM3 (134-434); RDW 13.6 % (11.9-15.9); WHITE BLOOD COUNT 7.6 K/mm3 (4.0-10.0)
[2017-02-12 08:12] LABS: CALCIUM 7.8 mg/dL (8.5-10.1); COCKROFT - GAULT 34.93
[2017-02-12] MEDS: amLODIPine BESYLATE 5 MG TABLET (FP) PO SCH (09:32)
[2017-02-12] MEDS ORDERED: predniSONE 20 MG TABLET (UD) PO SCH (10:00)
[2017-02-12 10:44] VITALS: BP 119/57; PULSE 65
--- NOTE | 2017-02-12 15:05 | PN ---
Teaching Attending Note Name of Resident: Indy Rosales ATTENDING PHYSICIAN STATEMENT I saw and evaluated the patient. I reviewed the resident's note and discussed the case with the resident. I agree with the resident's findings and plan as documented. SUBJECTIVE: OBJECTIVE: Vital Signs Period Temp Pulse Resp BP Sys/Hargrove Pulse Ox Last 24 Hr 97.7 F-98.4 F 65-85 18-20 119-155/57-90 96-97 ASSESSMENT AND PLAN:
--- NOTE | 2017-02-12 15:15 | DS ---
Physical Exam: SUBJECTIVE: Patient seen and examined, no new complaints, denies chest pain, sob , fever, chill, n,v, problems with urination. OBJECTIVE: Vital Signs Period Temp Pulse Resp BP Sys/[place] Pulse Ox Last 24 Hr 97.7 F-98.4 F 65-85 18-20 119-155/57-90 96-97 PHYSICAL EXAM GENERAL: The patient is awake, alert, and fully oriented, in no acute distress. HEAD: Normal with no signs of trauma. EYES: PERRL, extraocular movements intact, sclera anicteric, conjunctiva clear. ENT: Ears normal, nares patent, oropharynx clear without exudates, moist mucous membranes. NECK: Trachea midline, full range of motion, supple. LUNGS: Breath sounds decreased, wheezes improved , no crackles, no accessory muscle use. HEART: Regular rate and rhythm, S1, S2 without murmur, rub or gallop. ABDOMEN: Soft, nontender, nondistended, normoactive bowel sounds, no guarding, no rebound, no hepatosplenomegaly, no masses. EXTREMITIES: 2+ pulses, warm, well-perfused, no edema. NEUROLOGICAL: Cranial nerves II through XII grossly intact. Normal speech, gait not observed. PSYCH: Normal mood, normal affect. SKIN: Warm, dry, normal turgor, no rashes or lesions noted. LABS Laboratory Results - last 24 hr 02/11/17 02/12/17 02/12/17 16:33 06:20 06:20 WBC 7.6 RBC 3.68 L Hgb 12.1 Hct 35.3 L MCV 96.0 MCHC 34.1 RDW 13.6 Plt Count 163 MPV 6.3 L Neutrophils % 64.2 Lymphocytes % 25.3 D Monocytes % 9.3 Eosinophils % 0.7 D Basophils % 0.5 Sodium 142 Potassium 4.9 Chloride 109 H Carbon Dioxide 26 Anion Gap 7 L BUN 26 H Creatinine 2.0 H Random Glucose 93 Calcium 7.8 L Urine Color Colorless Urine Appearance Clear Urine pH 5.0 Ur Specific Terrell 1.006 Urine Protein Negative Urine Glucose (UA) Negative Urine Ketones Negative Urine Blood 2+ H Urine Nitrite Negative Urine Bilirubin Negative Urine Urobilinogen Negative Ur Leukocyte Esterase Negative Urine RBC 1 Urine WBC 1 Urine Mucus Rare HOSPITAL COURSE: Date of Admission:02/09/17 Date of Discharge: 02/12/17 Mr. Story is an 82 year old male with a past medical history of tobacco use, hypertension, hyperlipidemia, lymphoma (diagnoses and treated 11yrs ago, treated with chemotherapy and surgery), presents to the emergency room with shortness of breath that awoke him from sleep. Emergency room course as notable for hypoxia, BUN/Cr 19/2.3, and elevated CKMB, troponin negative. Patient was admitted for Acute kidney injury, and rule out acute coronary syndrome. Shortness of breath was secondary to COPD due to chronic smoking history, hypoxia and physical exam findings. He improved on steroids and duoneb treatments, sent home with inhaler and is to follow up with primary regarding pulmonary evaluation. ACS was ruled out due to three negative troponins, negative dobutamine stress test. Cardiology was consulted, follow up as outpatient. Sent home on metoprolol , statin, aspirin. Work up was indicated acute renal failure. Renal ultrasound indicated right hypdronephrosis. Bladder scan post void did show 370cc of urine. He did not admit to any problems with urination, patient did not want lucas. Or any further workup. Nephrology and urology was consulted, he will follow up as an outpatient. TSH was significantly elevated, synthroid was increased. Patient was counselled on smoking cessation and does not want to quit. Minutes to complete discharge: 35 Discharge Summary Reason For Visit: SHORTNESS OF BREATH, ELEVATED CARDIA ENZYMES Condition: Fair - Instructions Diet, Activity, Other Instructions: Mr. 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 We you like you to follow up with your primary doctor to further evaluate you. Also we found that your kidneys were not functioning with in normal limits. We recommend you follow up with a casting and pasting supervisor and a urologist, names are provided. IF you experience any worsening of symptoms please return tot he emergency room. Referrals: Porter Foreman MD [Primary Care Provider] - Jackson Lopez MD., [Staff Physician] - Chari Mcmahon MD [Staff Physician] - Disposition: HOME - Home Medications Comprehensive Discharge Medication List: Ambulatory Orders Lisinopril [Prinivil] 20 mg PO DAILY 02/09/17 Amlodipine Besylate [Norvasc -] 5 mg PO DAILY tablet 02/12/17 Budesonide/Formeterol Fumarate [SYMBICORT 160/4.5mcg -] 1 inh PO DAILY #1 cannister 02/12/17 Levothyroxine [Synthroid -] 50 mcg PO DAILY@0700 #30 tablet 02/12/17 Prednisone [Deltasone -] 10 mg PO ONCE #1 tablet 02/12/17 Problem List - Problems (1) CKD (chronic kidney disease) Code(s): N18.9 - CHRONIC KIDNEY DISEASE, UNSPECIFIED (2) COPD (chronic obstructive pulmonary disease) Code(s): J44.9 - CHRONIC OBSTRUCTIVE PULMONARY DISEASE, UNSPECIFIED (3) Elevation of cardiac enzymes Code(s): R74.8 - ABNORMAL LEVELS OF OTHER SERUM ENZYMES (4) Hypertension Code(s): I10 - ESSENTIAL (PRIMARY) HYPERTENSION (5) Hypothyroidism Code(s): E03.9 - HYPOTHYROIDISM, UNSPECIFIED (6) SOB (shortness of breath) Code(s): R06.02 - SHORTNESS OF BREATH This patient is new to me today: No Emergency Visit: Yes ED Registration Date: 02/09/17 Care time: The patient presented to the Emergency Department on the above date and was hospitalized for further evaluation of their emergent condition. Critical Care patient: No - Discharge Referral Referred to [facility] Yes Physician Referral: Porter Randall MD ([facility])
== END 2017-02-12 10:51 | disposition home or self-care (01) | DRG 191 ==
LOC: JER 10:29 → JERBED 13:16 → J6S 02-10 17:57
PROVIDERS: ADMIT Internal Medicine; ATTEND Internal Medicine
DX: J44.1 Chronic obstructive pulmonary disease with (acute) exacerbation (principal); N17.9 Acute kidney failure, unspecified; C85.90 Non-Hodgkin lymphoma, unspecified, unspecified site; N13.30 Unspecified hydronephrosis; E78.5 Hyperlipidemia, unspecified; E03.9 Hypothyroidism, unspecified; F17.210 Nicotine dependence, cigarettes, uncomplicated; N28.1 Cyst of kidney, acquired; I12.9 Hypertensive chronic kidney disease with stage 1 through stage 4 chronic kidney disease, or unspecified chronic kidney disease; N18.9 Chronic kidney disease, unspecified; R31.29 Other microscopic hematuria
CPT/HCPCS: 36415; 71020-TC; 76775-TC; 78452-TC; 80048; 80053; 80061; 81003; 81015; 82550; 82553; 82570; 83721; 83735; 83880; 84100; 84439; 84443; 84484; 85025; 85027; 93005; 93010; 93017; 93306-TC; 93970-TC; 99285-25; A9502

== ENCOUNTER 2018-03-21 08:36 | Emergency (ER) | payer OTHER ==
[2018-03-21 08:43] VITALS: TEMP 97.3; BMI 29.7
[2018-03-21] MEDS ORDERED: FAMOTIDINE IV 20 MG/12 ML VIAL IVPUSH ONE (09:04)
[2018-03-21] MEDS ORDERED: MAG HYDROX/AL HYDROX/SIMETH 30 ML UNIT-DOSE CUP PO ONE (09:05)
[2018-03-21] MEDS ORDERED: FAMOTIDINE 20 MG/50 ML IVPB 20 MG/50 ML MG IVPB ONE (09:06)
[2018-03-21] MEDS ORDERED: MAG HYDROX/AL HYDROX/SIMETH 30 ML UNIT-DOSE CUP ONE (09:06)
[2018-03-21 09:18] LABS: BASO % 0.7 % (0-2.0); EOS % 2.1 % (0-4.5); HEMATOCRIT 41.4 % (35.4-49); HEMOGLOBIN 13.9 GM/dL (11.7-16.9); LYMPH % 29.8 % (8-40); MCH 30.3 pg (25.7-33.7); MCHC 33.5 g/dl (32.0-35.9); MEAN CELL VOLUME 90.4 fl (80-96); MEAN PLT VOLUME 6.4 fl (7.5-11.1); MONO % 8.4 % (3.8-10.2); PLATELET COUNT 234 K/MM3 (134-434); RBC 4.57 M/mm3 (4.00-5.60); RDW 14.5 % (11.9-15.9)
[2018-03-21 09:55] LABS: ALBUMIN 3.9 g/dl (3.4-5.0); ANION GAP 8 (8-16); BLOOD UREA NITROGEN 22 mg/dL (7-18); CALCIUM 8.7 mg/dL (8.5-10.1); CHLORIDE 104 mmol/L (98-107); CO2 26 mmol/L (21-32); GLUCOSE,RANDOM 120 mg/dL (74-106); SGPT/ALT 12 U/L (12-78); SODIUM 138 mmol/L (136-145)
[2018-03-21 10:05] LABS: ALK PHOS 390 U/L (45-117); TOT PROT 7.8 g/dl (6.4-8.2)
[2018-03-21 10:11] LABS: SGOT/AST 19 U/L (15-37)
--- NOTE | 2018-03-21 10:45 | PDOC ---
History of Present Illness - General Chief Complaint: Shortness of Breath Stated Complaint: SHORTNESS OF BREATH Time Seen by Provider: 03/21/18 08:42 History Source: Patient Exam Limitations: No Limitations - History of Present Illness Initial Comments: 03/21/18 10:37 Patient is an 83M with history of HTN, HLD, lymphoma s/p chemotherapy, hypothyroidism, COPD, and tobacco abuse here today complaining of a burning chest pain with cough and shortness of breath for the past week. He describes his chest pain as a substernal burning pain that worsens with cough. Denies changes in pain with exertion and rest. Patient states that he has shortness of breath, but the amount has not changed and is at his baseline. Denies fevers, chills, nausea, vomiting. Denies prior blood clot, leg swelling, recent travel and hospitalizations. 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 He reports that he was told he had gastritis and was referred to Dr Rubalcava for further workup. Past History - Past Medical History Allergies/Adverse Reactions: Allergies Allergy/AdvReac Type Severity Reaction Status Date / Time No Known Allergies Allergy Verified 03/21/18 08:38 Home Medications: Ambulatory Orders Lisinopril [Prinivil] 20 mg PO DAILY 02/09/17 Budesonide/Formeterol Fumarate [SYMBICORT 160/4.5mcg -] 1 inh PO DAILY #1 cannister 02/12/17 Atorvastatin Ca [Lipitor] 40 mg PO HS 03/21/18 Levothyroxine [Synthroid -] 112 mcg PO DAILY@0700 03/21/18 Anemia: No Asthma: No Cancer: Yes (lmyphoma) Cardiac Disorders: No CVA: No COPD: Yes CHF: No Dementia: No Diabetes: No GI Disorders: No Disorders: No HTN: Yes Hypercholesterolemia: Yes Liver Disease: No Seizures: No Thyroid Disease: Yes - Surgical History Abdominal Surgery: No Appendectomy: No Cardiac Surgery: No Cholecystectomy: No Lung Surgery: No Neurologic Surgery: No - Suicide/Smoking/Psychosocial Hx Smoking History: Former smoker Have you smoked in the past 12 months: No Number of Cigarettes Smoked Daily: 3 Information on smoking cessation initiated: No 'Breaking Loose' booklet given: 02/10/17 Hx Alcohol Use: No Drug/Substance Use Hx: No Substance Use Type: None Review of Systems - Review of Systems Comments:: 03/21/18 10:40 GENERAL/CONSTITUTIONAL: No fever or chills. No weakness. HEAD, EYES, EARS, NOSE AND THROAT: No change in vision. No sore throat. CARDIOVASCULAR: Positive for chest pain and shortness of breath RESPIRATORY: Positive cough. No wheezing, or hemoptysis. GASTROINTESTINAL: No nausea, vomiting, diarrhea or constipation. GENITOURINARY: No dysuria, frequency, or change in urination. MUSCULOSKELETAL: No joint or muscle swelling or pain. No neck or back pain. SKIN: No rash NEUROLOGIC: No headache, vertigo, loss of consciousness, or change in strength/ sensation. HEMATOLOGIC/LYMPHATIC: No anemia, easy bleeding, or history of blood clots. ALLERGIC/IMMUNOLOGIC: No hives or skin allergy. *Physical Exam - Vital Signs Last Vital Signs Temp Pulse Resp BP Pulse Ox 97.3 F L 91 H 20 172/103 100 03/21/18 08:38 03/21/18 08:38 03/21/18 08:38 03/21/18 08:38 03/21/18 08:38 - Physical Exam Comments: 03/21/18 10:41 GENERAL: Awake, alert, and fully oriented, in no acute distress HEAD: No signs of trauma, normocephalic, atraumatic EYES: PERRLA, EOMI, sclera anicteric, conjunctiva clear ENT: Auricles normal inspection, hearing grossly normal, nares patent, oropharynx clear without exudates. Moist mucosa LUNGS: No distress, speaks full sentences, clear to auscultation bilaterally HEART: Regular rate and rhythm, normal S1 and S2, no murmurs, rubs or gallops, peripheral pulses normal and equal bilaterally. ABDOMEN: Soft, nontender, normoactive bowel sounds. No guarding, no rebound. No masses EXTREMITIES: Normal inspection, Normal range of motion, no edema. No clubbing or cyanosis. NEUROLOGICAL: Cranial nerves II through XII grossly intact. Normal speech, normal gait, no focal sensorimotor deficits SKIN: Warm, Dry, normal turgor, no rashes or lesions noted. Heart Score/ECG Review - History History: Slightly suspicious - Electrocardiogram EKG: Normal - Age Age: >/= 65 - Risk Factors Risk Factors Heart Score: Yes Hx Hypercholesterolemia, Yes Hx Hypertension, Yes Smoking History Based on the list above the patient has:: >/=3 risk factors or Hx atherosclerotic disease - Troponin Troponin: </= normal limit - Score Heart Score - Total: 4 ED Treatment Course - LABORATORY CBC & Chemistry Diagram: 03/21/18 09:14 03/21/18 09:14 - ADDITIONAL ORDERS Additional order review: Laboratory Results 03/21/18 09:14 Sodium 138 Potassium 5.0 Chloride 104 Carbon Dioxide 26 Anion Gap 8 BUN 22 H Creatinine 2.0 H Creat Clearance w eGFR 32.15 Random Glucose 120 H D Calcium 8.7 Total Bilirubin 1.0 AST 19 D ALT 12 D Alkaline Phosphatase 390 H D Creatine Kinase 174 Troponin I < 0.02 Total Protein 7.8 Albumin 3.9 TSH 3.44 D 03/21/18 09:14 RBC 4.57 D MCV 90.4 MCHC 33.5 RDW 14.5 MPV 6.4 L Neutrophils % 59.0 Lymphocytes % 29.8 Monocytes % 8.4 Eosinophils % 2.1 D Basophils % 0.7 - RADIOLOGY Radiology Studies Ordered: Category Date Time Status CHEST PA & LAT [RAD] Stat Radiology 03/21/18 09:03 Completed - Medications Given in the ED: ED Medications Discontinued Medications Generic Name Dose Route Start Last Admin Trade Name Freq PRN Reason Stop Dose Admin Al Hydroxide/Mg Hydroxide 30 ml 03/21/18 09:05 03/21/18 09:21 Mylanta Oral Suspension - PO 03/21/18 09:06 30 ml NOW ONE Administration Famotidine 20 mg in 12 mls @ 144 mls/hr 03/21/18 09:04 03/21/18 09:21 Pepcid 20 Mg/12 Ml Push IVPUSH 03/21/18 09:08 144 mls/hr BID ONE Administration Medical Decision Making - Medical Decision Making 03/21/18 10:41 Patient is 83M with history of HTN, HLD, lymphoma, COPD, hypothyroidism and tobacco abuse here today with atypical chest pain. History most consistent with gastritis, but will evaluate with cardiac workup due to multiple risk factors and age. Will treat with maalox and IV pepcid. EKG shows normal sinus rhythm with rate of 81. No st elevations/depressions. Left anterior fascicular block morphology. Q waves in inferior leads. Normal WA/ QRS/QTc intervals 03/21/18 10:47 Laboratory Tests 03/21/18 03/21/18 09:14 09:14 WBC 7.0 Hgb 13.9 D Plt Count 234 D BUN 22 H Creatinine 2.0 H Troponin I < 0.02 CBC normal. CMP shows CKD at baseline. Troponin undetectable. CXR shows no acute pathology. 03/21/18 11:38 Patient improved, will draw second trop and discharge if normal. 03/21/18 12:51 Second troponin normal. Will discharge home with pepcid and omeprazole. 03/21/18 12:58 Dr Tse contacted. Patient seen two months ago. Asked for stress test at the time, but patient said he had one done recently. Review of records shows that patient had stress test done in February 2017 that was normal. Patient is asking to go home. Risks and benefits of going home explained to patient. Patient is fully alert and oriented and does not wish to stay. Patient instructed to call his build manager and PCP as soon as possible as an alternative. *DC/Admit/Observation/Transfer Diagnosis at time of Disposition: Chest pain - Discharge Dispostion Disposition: HOME Condition at time of disposition: Good Decision to Admit order: No - Referrals Referrals: Porter Foreman MD [Primary Care Provider] - - Patient Instructions Printed Discharge Instructions: DI for Gastritis, DI for Chest Pain Additional Instructions: Please return if you have any new, worsening or concerning symptoms. Please take your omeprazole and pepcid as indicated on the bottle. Please return if you have any new, worsening or concerning symptoms. Please call your build manager and primary care physician to set up an appointment as soon as possible to set up an appointment to follow up further. - Post Discharge Activity
--- NOTE | 2018-03-21 12:28 | PDOC ---
Attending Attestation - HPI HPI: 03/21/18 12:28 The patient is a 83 year old male, with a significant past medical history of HTN, HLD, COPD and thyroid disease, who presents to the emergency department complaining of chest pain, cough and shortness of breath over the past week. He describes his chest pain as ranging from mild to moderate, without radiation or modifying factors. The patient had a cardiac workup in the last couple of months that was within normal limits, which included an echo and stress test. At the time he was informed he had gastritis and referred to Dr. Flanagan for evaluation. The patient denies headache or dizziness. Denies fever, chills, nausea, vomiting , diarrhea and constipation. Family Hx: Brother (Cardiac BYPASS surgery) Allergies: None Past surgical history: None reported Social History: Cigarette use (3 daily) - Physicial Exam PE: 03/21/18 12:29 GENERAL: Awake, alert, and fully oriented, in no acute distress HEAD: No signs of trauma, normocephalic, atraumatic EYES: PERRLA, EOMI, sclera anicteric, conjunctiva clear ENT: Auricles normal inspection, hearing grossly normal, nares patent, oropharynx clear without exudates. Moist mucosa LUNGS: No distress, speaks full sentences, clear to auscultation bilaterally HEART: Regular rate and rhythm, normal S1 and S2, no murmurs, rubs or gallops, peripheral pulses normal and equal bilaterally. ABDOMEN: Soft, nontender, normoactive bowel sounds. No guarding, no rebound. No masses EXTREMITIES: Normal inspection, Normal range of motion, no edema. No clubbing or cyanosis. NEUROLOGICAL: Cranial nerves II through XII grossly intact. Normal speech, normal gait, no focal sensorimotor deficits SKIN: Warm, Dry, normal turgor, no rashes or lesions noted <Konstantin Asif - Last Filed: 03/21/18 13:47> - Resident Resident Name: Naveen Munoz - ED Attending Attestation I have performed the following: I have examined & evaluated the patient, The case was reviewed & discussed with the resident, I agree w/resident's findings & plan, Exceptions are as noted - Medical Decision Making 03/21/18 15:11 83 yo M with h/o copd htn Hld here wtih atypical chest pain. . denies leg swelling. no f/c no cough. describes as burning. states he thought he had cardiac workup recently. 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 physical exam unremaable. differential GERD, atypical ACS, infectio nsuch as pna. plan cxr labs ekg. aspirin antacid. initial work up negative negative trop normal ekg. plan d/w cap and stud machine operator. after discuss with pt cap and stud machine operator would like pt admitted. pt refused. dc ama, trop negative x 2. encouraged to return for recurrent symptoms. <Izabela Nation - Last Filed: 03/21/18 15:16> Heart Score/ECG Review #1 General ECG Interpretation: Sinus Rhythm, Normal Rate (81), Normal Intervals, No acute ischemic changes (flat t wave Ii III AVF, left axis.) Compared to previous ECG there are: No significant change (comparison 02/09/2017) <Izabela Nation - Last Filed: 03/21/18 15:16>
[2018-03-21 13:42] VITALS: BP 135/95; PULSE 92
--- NOTE | 2018-03-24 00:37 | EKG ---
Test Reason : Blood Pressure : / mmHG Vent. Rate : 081 BPM Atrial Rate : 081 BPM P-R Int : 198 ms QRS Dur : 082 ms QT Int : 394 ms P-R-T Axes : 039 -51 010 degrees QTc Int : 457 ms NORMAL SINUS RHYTHM LOW VOLTAGE QRS LEFT ANTERIOR FASCICULAR BLOCK POOR R WAVE PROGRESSION ABNORMAL ECG WHEN COMPARED WITH ECG OF 09-FEB-2017 16:32, NO SIGNIFICANT CHANGE WAS FOUND Confirmed by JEANE SHANNON, JOVANY ([id number]) on 03/24/2018 12:36:38 AM Referred By: Confirmed By:JOVANY CHING MD
== END 2018-03-21 13:28 | disposition left against medical advice (07) ==
LOC: JER 08:36
PROC: 3E033GC Introduction of Other Therapeutic Substance into Peripheral Vein, Percutaneous Approach (ICD-10-PCS; principal; 2018-03-21)
DX: R07.89 Other chest pain (principal); K29.70 Gastritis, unspecified, without bleeding; I10 Essential (primary) hypertension; E78.5 Hyperlipidemia, unspecified; E03.1 Congenital hypothyroidism without goiter; J44.9 Chronic obstructive pulmonary disease, unspecified; Z87.891 Personal history of nicotine dependence; Z85.72 Personal history of non-Hodgkin lymphomas
CPT/HCPCS: 36415; 71046-TC-FY; 80053; 82550; 82553; 84443; 84484; 85025; 93005; 93010; 96374; 99283-25

== ENCOUNTER 2018-03-31 14:11 | Inpatient (IN) | payer OTHER ==
--- NOTE | 2018-03-31 14:45 | PDOC ---
History of Present Illness - General Chief Complaint: Bone Injury Stated Complaint: FALL Time Seen by Provider: 03/31/18 14:27 History Source: Patient Exam Limitations: No Limitations - History of Present Illness Initial Comments: 03/31/18 14:45 The patient is an 83 M with a PMH of HTN, HLD, lymphoma s/p chemotherapy, hypothyroidism, COPD, and tobacco abuse who presents after having an unwitnessed fall at home. The patient states that he was sitting on his couch when he got up and fell towards his R side. He denies any CP, SOB, numbness, tingling, weakness, LOC, or head trauma before, during, or after this fall. He says he tried to help himself up and called EMS. He states he has some discomfort in his R femur. He denies any other injuries. Past History - Past Medical History Allergies/Adverse Reactions: Allergies Allergy/AdvReac Type Severity Reaction Status Date / Time No Known Allergies Allergy Verified 03/21/18 08:38 Home Medications: Ambulatory Orders Lisinopril [Prinivil] 20 mg PO DAILY 02/09/17 Budesonide/Formeterol Fumarate [SYMBICORT 160/4.5mcg -] 1 inh PO DAILY #1 cannister 02/12/17 Atorvastatin Ca [Lipitor] 40 mg PO HS 03/21/18 Famotidine [Pepcid] 20 mg PO BID #28 tablet 03/21/18 Levothyroxine [Synthroid -] 112 mcg PO DAILY@0700 03/21/18 Omeprazole 20 mg PO DAILY #14 tablet. 03/21/18 Anemia: No Asthma: No Cancer: Yes (lmyphoma) Cardiac Disorders: No CVA: No COPD: Yes CHF: No Dementia: No Diabetes: No GI Disorders: No Disorders: No HTN: Yes Hypercholesterolemia: Yes Liver Disease: No Seizures: No Thyroid Disease: Yes - Surgical History Abdominal Surgery: No Appendectomy: No Cardiac Surgery: No Cholecystectomy: No Lung Surgery: No Neurologic Surgery: No - Suicide/Smoking/Psychosocial Hx Smoking History: Former smoker Have you smoked in the past 12 months: No Number of Cigarettes Smoked Daily: 3 Information on smoking cessation initiated: No 'Breaking Loose' booklet given: 02/10/17 Hx Alcohol Use: No Drug/Substance Use Hx: No Substance Use Type: None Review of Systems - Review of Systems Able to Perform ROS?: Yes Comments:: 03/31/18 15:34 GENERAL/CONSTITUTIONAL: No fever or chills. No weakness. HEAD, EYES, EARS, NOSE AND THROAT: No change in vision. No ear pain or discharge. No sore throat. CARDIOVASCULAR: No chest pain, palpitations, or lightheadedness. RESPIRATORY: No cough, wheezing, shortness of breath, or hemoptysis. GASTROINTESTINAL: No nausea, vomiting, diarrhea, constipation, or abdominal pain. GENITOURINARY: No dysuria, frequency, hematuria, or change in urination. MUSCULOSKELETAL: Positive for R femoral pain with swelling. No neck or back pain. SKIN: No rash or lesions. NEUROLOGIC: No headache, numbness, tingling, weakness, loss of consciousness, or change in strength/sensation. ENDOCRINE: No increased thirst. No abnormal weight change. HEMATOLOGIC/LYMPHATIC: No anemia, easy bleeding, or history of blood clots. ALLERGIC/IMMUNOLOGIC: No hives or skin allergy. Is the patient limited Taiwanese proficient: No *Physical Exam - Vital Signs Last Vital Signs Temp Pulse Resp BP Pulse Ox 98.5 F 74 20 103/88 94 L 03/31/18 14:24 03/31/18 14:24 03/31/18 14:24 03/31/18 14:24 03/31/18 14:24 - Physical Exam Comments: 03/31/18 15:35 GENERAL: Well developed, well nourished. Awake and alert. No acute distress. HEENT: Normocephalic, atraumatic. Hearing grossly normal. Moist mucous membranes. PERRLA, EOMI. No conjunctival pallor. Sclera are non-icteric. NECK: Supple. Full ROM. CARDIOVASCULAR: Regular rate and rhythm. No murmurs, rubs, or gallops. Distal pulses are 2+ and symmetric. PULMONARY: No evidence of respiratory distress. Lungs clear to auscultation bilaterally. No wheezing, rales or rhonchi. ABDOMINAL: Soft. Non-tender. Non-distended. No rebound or guarding. GENITOURINARY: No CVA tenderness bilaterally. MUSCULOSKELETAL: Tenderness to palpation over mid-femur. No hip instability or pain. No knee pain or tenderness to palpation. EXTREMITIES: No cyanosis. No clubbing. No edema. No calf tenderness or swelling. SKIN: Warm and dry. Normal capillary refill. No rashes. No jaundice. NEUROLOGICAL: Alert, awake, appropriate. Cranial nerves 2-12 intact. No deficits to light touch and temperature in face, upper extremities and lower extremities. Normal speech. PSYCHIATRIC: Cooperative. Good eye contact. Appropriate mood and affect. ED Treatment Course - LABORATORY CBC & Chemistry Diagram: 03/31/18 15:33 03/31/18 15:33 - RADIOLOGY Radiology Studies Ordered: Category Date Time Status FEMUR-RIGHT [RAD] Stat Radiology 03/31/18 14:36 Ordered HIP & PELVIS-RIGHT [RAD] Stat Radiology 03/31/18 14:36 Ordered Medical Decision Making - Medical Decision Making 03/31/18 15:31 The patient is an 83M who presents after having a mechanical fall. Femur XR shows mid-femur angulated fracture. Will discuss with ortho. Giving tylenol for pain control. 03/31/18 16:39 I have endorsed the patient to Dr. Ying for admission under Dr. Doss. Pending call back from ortho. *DC/Admit/Observation/Transfer Diagnosis at time of Disposition: Femoral fracture Qualifiers: Encounter type: initial encounter Femur location: shaft Fracture type: closed Fracture morphology: other fracture Laterality: right Qualified Code(s): S72.391A - Other fracture of shaft of right femur, initial encounter for closed fracture - Discharge Dispostion Condition at time of disposition: Stable Decision to Admit order: Yes - Referrals Referrals: Porter Foreman MD [Primary Care Provider] - - Patient Instructions - Post Discharge Activity
--- NOTE | 2018-03-31 15:34 | PDOC ---
Attending Attestation - Resident Resident Name: AlexysrellpauletteSarabjit - ED Attending Attestation I have performed the following: I have examined & evaluated the patient, The case was reviewed & discussed with the resident, I agree w/resident's findings & plan - HPI HPI: 03/31/18 15:31 83y/o M slip and fall this morning in his living room, otherwise high functioning and active, p/w pain/swelling to R thigh since fall. no sensory deficit, unable to ambulate or range the RLE since the fall. - Physicial Exam PE: 03/31/18 15:33 VSS comfortable in stretcher, nad atraumatic except for RLE: swelling to thigh, ttp midshaft femur but not over hip or knee. 2+ distal pulse, sensory intact - Medical Decision Making 03/31/18 15:34 83y/o M with mechanical slip and fall, suspect R femur fracture. nvi. pre-op labs declines opiates for pain, will give apap iv xrays admit/ortho consult Heart Score/ECG Review #1 ECG reviewed & interpreted by me at: 15:31 General ECG Interpretation: Sinus Rhythm, Normal Rate (79), Normal Intervals ( qtc 410), No acute ischemic changes (v4-v6 TWI)
[2018-03-31 15:42] LABS: EOS % 0.5 % (0-4.5); HEMATOCRIT 39.6 % (35.4-49); HEMOGLOBIN 13.2 GM/dL (11.7-16.9); LYMPH % 12.5 % (8-40); MCHC 33.3 g/dl (32.0-35.9); MEAN CELL VOLUME 90.1 fl (80-96); MEAN PLT VOLUME 6.3 fl (7.5-11.1); MONO % 5.9 % (3.8-10.2); NEUT % 80.1 % (42.8-82.8); PLATELET COUNT 279 K/MM3 (134-434); RBC 4.39 M/mm3 (4.00-5.60); RDW 14.1 % (11.9-15.9); WHITE BLOOD COUNT 13.4 K/mm3 (4.0-10.0)
[2018-03-31 15:54] LABS: INR 1.14 (0.82-1.09); PROTHROMBIN TIME (PATIENT) 12.9 SEC (9.7-13.0)
[2018-03-31 16:07] LABS: ALBUMIN 3.6 g/dl (3.4-5.0); ANION GAP 7 (8-16); BILIRUBIN,TOTAL 0.6 mg/dL (0.2-1.0); BLOOD UREA NITROGEN 24 mg/dL (7-18); CALCIUM 8.9 mg/dL (8.5-10.1); CHLORIDE 109 mmol/L (98-107); CO2 26 mmol/L (21-32); CREATININE 2.2 mg/dL (0.7-1.3); GLUCOSE,RANDOM 135 mg/dL (74-106); SGOT/AST 15 U/L (15-37); SGPT/ALT 10 U/L (12-78); SODIUM 142 mmol/L (136-145); TOT PROT 7.4 g/dl (6.4-8.2)
[2018-03-31 16:10] LABS: ALK PHOS 392 U/L (45-117)
[2018-03-31] MEDS ORDERED: ACETAMINOPHEN 1000 MG/100 ML VIAL (NON FORMULARY) IVPB ONE (16:27)
[2018-03-31] MEDS ORDERED: ACETAMINOPHEN INJECTION 100 ML IVPB ONE (16:28)
--- NOTE | 2018-03-31 16:51 | HP ---
CHIEF COMPLAINT: Mechanical Fall PCP: Dr. Foreman HISTORY OF PRESENT ILLNESS: 83yo M with hisotry of HTN, HLD, Lymphoma s/p chemotherapy in remission, hypothyroidism, COPD, and tobacco abuse who presents today after mechanical fall this afternoon. Pt was in his usual state of health when he stood up from his couch to void. Suddenly he slipped on his floor and landed on his R side on the ground. He denies any LOC, AC/AP use, lightheadedness, palpitations, blurry vision, and other preceding symptoms to his fall. When he tried to help himself up, he could not and felt pain in his R leg which prompted him to call EMS. Currently pt has some mild pain in his R leg, but denies any tingling or numbness. ER course was notable for: (1) Elevation in Alk phos 392 (2) Troponin negative; CK 337 (3) Femur XR - Comminuted fx of the midshaft R femur with mod displacement and overlap of fracture fragments (4) EKG - NSR 79bpm, left anterior fasicular block with low voltage QRS; QTc 401ms (5) CXR - No acute pathology Recent Travel: None PAST MEDICAL HISTORY: HTN, HLD, Lymphoma s/p chemotherapy and resection of tumor, hypothyroidism, COPD, and tobacco abuse PAST SURGICAL HISTORY: Social History: Smoking: Current; 4 cigs/day Alcohol: None Drugs: None Lives at home alone; goes dancing and active Family History: deferred. Allergies No Known Allergies Allergy (Verified 03/21/18 08:38) HOME MEDICATIONS: Home Medications Medication Instructions Recorded Lisinopril [Prinivil] 20 mg PO DAILY 02/09/17 Budesonide/Formeterol Fumarate 1 inh PO DAILY #1 cannister 02/12/17 [SYMBICORT 160/4.5mcg -] Atorvastatin Ca [Lipitor] 40 mg PO HS 03/21/18 Famotidine [Pepcid] 20 mg PO BID #28 tablet 03/21/18 Levothyroxine [Synthroid -] 112 mcg PO DAILY@0700 03/21/18 Omeprazole 20 mg PO DAILY #14 tablet. 03/21/18 REVIEW OF SYSTEMS CONSTITUTIONAL: Absent: fever, chills, diaphoresis, generalized weakness, malaise, loss of appetite, weight change HEENT: Absent: rhinorrhea, nasal congestion, throat pain, throat swelling, difficulty swallowing, mouth swelling, ear pain, eye pain, visual changes CARDIOVASCULAR: Absent: chest pain, syncope, palpitations, irregular heart rate, lightheadedness , peripheral edema RESPIRATORY: Absent: cough, shortness of breath, dyspnea with exertion, orthopnea, wheezing, stridor, hemoptysis GASTROINTESTINAL: Absent: abdominal pain, abdominal distension, nausea, vomiting, diarrhea, constipation, melena, hematochezia GENITOURINARY: Absent: dysuria, frequency, urgency, hesitancy, hematuria, flank pain, genital pain MUSCULOSKELETAL: Present: LEG PAIN Absent: myalgia, arthralgia, joint swelling, back pain, neck pain NEUROLOGIC: Absent: headache, focal weakness or paresthesias, dizziness, unsteady gait, seizure, mental status changes, bladder or bowel incontinence PHYSICAL EXAMINATION Vital Signs - 24 hr 03/31/18 14:24 Temperature 98.5 F Pulse Rate 74 Respiratory 20 Rate Blood Pressure 103/88 O2 Sat by Pulse 94 L Oximetry (%) GENERAL: Awake, alert, and fully oriented, in no acute distress. HEENT: NC/AT, EOMI, KERRY, sclera anicteric, dry-moist mucosa NECK: No point tenderness, ROM intact, no JVD LUNGS: CTA bilaterally. No wheezes, and no crackles. No accessory muscle use. HEART: RRR, normal S1 and S2 without murmur ABDOMEN: Soft, nontender, not distended, normoactive bowel sounds, no guarding, no rebound, no masses. No hepatomegaly MUSCULOSKELETAL: LLExt externally rotated with limitation of hip flexion/ extension. ROM intact with dorsal/plantar flexion R foot and metatarsal movement. No CVA tenderness. 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 Strength of R dorsal/plantar flexion 5/5. Sensation grossly intact bilaterally. Normal speech PSYCHIATRIC: Cooperative. Good eye contact. Appropriate mood and affect. SKIN: Warm, dry, normal turgor, no rashes or lesions noted Laboratory Results - last 24 hr 03/31/18 03/31/18 03/31/18 15:33 15:33 15:33 WBC 13.4 H D RBC 4.39 Hgb 13.2 Hct 39.6 MCV 90.1 MCH 30.0 MCHC 33.3 RDW 14.1 Plt Count 279 MPV 6.3 L Neutrophils % 80.1 D Lymphocytes % 12.5 D Monocytes % 5.9 Eosinophils % 0.5 Basophils % 1.0 Nucleated RBC % 0 PT with INR 12.90 INR 1.14 Sodium 142 Potassium 5.0 Chloride 109 H Carbon Dioxide 26 Anion Gap 7 L BUN 24 H Creatinine 2.2 H Creat Clearance w eGFR 28.80 Random Glucose 135 H Calcium 8.9 Total Bilirubin 0.6 D AST 15 D ALT 10 L Alkaline Phosphatase 392 H Creatine Kinase 337 H Troponin I < 0.02 Total Protein 7.4 Albumin 3.6 Blood Type Antibody Screen 03/31/18 15:33 WBC RBC Hgb Hct MCV MCH MCHC RDW Plt Count MPV Neutrophils % Lymphocytes % Monocytes % Eosinophils % Basophils % Nucleated RBC % PT with INR INR Sodium Potassium Chloride Carbon Dioxide Anion Gap BUN Creatinine Creat Clearance w eGFR Random Glucose Calcium Total Bilirubin AST ALT Alkaline Phosphatase Creatine Kinase Troponin I Total Protein Albumin Blood Type O POSITIVE Antibody Screen Negative ASSESSMENT/PLAN: 1) R mid-femoral fracture --Awaiting call-back from Dr. Pruitt re: plan --NPO for now --Hold heparin SQ for now until decision about possible procedure --Pain control; currently being maintained with Ofirmev x1 in ED --CXR showing no acute pathology; EKG w/o change to previous 2) elevated alk phos --ggt tomorrow with labs --previous lymphoma history without history of elevation; possible resurgance --can alk phos be elevated with fracture?? 3) CKD? --pt at current Cr baseline --Monitor Cr --avoid nephrotoxins FEN: Fluids: Electrolyte abnormalities: none currently; monitor K Nutrition: NPO for possible procedure PPX: DVT - Holding heparin SQ until decision for procedure GI - Protonix IVP 40mg qdaily Pre-op: Moderate risk procedure for low risk pt due to age and COPD/tobacco use ; mets >5 at baseline Dispo: Admit M/S; possible OR pending ortho Case discussed with Dr. Selma Jaime, DO - IM PGY-1 Visit type - Emergency Visit Emergency Visit: Yes ED Registration Date: 03/31/18 Care time: The patient presented to the Emergency Department on the above date and was hospitalized for further evaluation of their emergent condition. - New Patient This patient is new to me today: Yes Date on this admission: 03/31/18 - Critical Care Critical Care patient: No Hospitalist Screening - Colonoscopy Questionnaire Colonoscopy Questionnaire: Colonoscopy Questionnaire - Patient: 50 - 75 years old and never had a screening colonoscopy: Unknown History of colon or rectal polyps, or CA: Unknown History of IBD, Crohn's disease or UC: Unknown History of abdominal radiation therapy as a child: Unknown - Relative: 1 with colon or rectal CA, or polyps at age 60 or younger: Unknown Colon or rectal CA diagnosed at age 45 or younger: Unknown Multiple relatives with colon or rectal CA: Unknown - Outcome: Screening Result: Negative Screen
[2018-03-31] MEDS ORDERED: morphine CARPU-JECT 4 MG/1 ML DISP.SYRIN IVPUSH ONE (18:54)
[2018-03-31] MEDS ORDERED: morphine CARPU-JECT 2 MG/1 ML DISP.SYRIN ONE (18:57)
--- NOTE | 2018-03-31 19:04 | PN ---
Teaching Attending Note Name of Resident: Kiel Jaime ATTENDING PHYSICIAN STATEMENT I saw and evaluated the patient. I reviewed the resident's note and discussed the case with the resident. I agree with the resident's findings and plan as documented. SUBJECTIVE: OBJECTIVE: Vital Signs Period Temp Pulse Resp BP Sys/[place] Pulse Ox Last 24 Hr 98.5 F 74-82 20-20 103-114/80-88 94-97 Laboratory Tests 03/31/18 03/31/18 03/31/18 15:33 15:33 15:33 WBC 13.4 H D RBC 4.39 Hgb 13.2 Hct 39.6 MCV 90.1 MCH 30.0 MCHC 33.3 RDW 14.1 Plt Count 279 MPV 6.3 L Neutrophils % 80.1 D Lymphocytes % 12.5 D Monocytes % 5.9 Eosinophils % 0.5 Basophils % 1.0 Nucleated RBC % 0 PT with INR 12.90 INR 1.14 Sodium 142 Potassium 5.0 Chloride 109 H Carbon Dioxide 26 Anion Gap 7 L BUN 24 H Creatinine 2.2 H Creat Clearance w eGFR 28.80 Random Glucose 135 H Calcium 8.9 Total Bilirubin 0.6 D AST 15 D ALT 10 L Alkaline Phosphatase 392 H Creatine Kinase 337 H Creatine Kinase Index 1.6 CK-MB (CK-2) 5.629 H Troponin I < 0.02 Total Protein 7.4 Albumin 3.6 Blood Type Antibody Screen 03/31/18 15:33 WBC RBC Hgb Hct MCV MCH MCHC RDW Plt Count MPV Neutrophils % Lymphocytes % Monocytes % Eosinophils % Basophils % Nucleated RBC % PT with INR INR Sodium Potassium Chloride Carbon Dioxide Anion Gap BUN Creatinine Creat Clearance w eGFR Random Glucose Calcium Total Bilirubin AST ALT Alkaline Phosphatase Creatine Kinase Creatine Kinase Index CK-MB (CK-2) Troponin I Total Protein Albumin Blood Type O POSITIVE Antibody Screen Negative Home Medications Medication Instructions Recorded Lisinopril [Prinivil] 20 mg PO DAILY 02/09/17 Budesonide/Formeterol Fumarate 1 inh PO DAILY #1 cannister 02/12/17 [SYMBICORT 160/4.5mcg -] Atorvastatin Ca [Lipitor] 40 mg PO HS 03/21/18 Famotidine [Pepcid] 20 mg PO BID #28 tablet 03/21/18 Levothyroxine [Synthroid -] 112 mcg PO DAILY@0700 03/21/18 Omeprazole 20 mg PO DAILY #14 tablet. 03/21/18 ASSESSMENT AND PLAN:
[2018-03-31] MEDS: ACETAMINOPHEN 1000 MG/100 ML VIAL (NON FORMULARY) IVPB PRN (22:18)
[2018-03-31 23:38] VITALS: BMI 29.5
[2018-04-01] MEDS: ACETAMINOPHEN 1000 MG/100 ML VIAL (NON FORMULARY) IVPB PRN ×2 (06:42→21:04)
[2018-04-01 08:10] LABS: HEMATOCRIT 36.8 % (35.4-49); HEMOGLOBIN 12.4 GM/dL (11.7-16.9); MCH 30.1 pg (25.7-33.7); MCHC 33.7 g/dl (32.0-35.9); MEAN CELL VOLUME 89.3 fl (80-96); MEAN PLT VOLUME 6.5 fl (7.5-11.1); PLATELET COUNT 249 K/MM3 (134-434); RBC 4.12 M/mm3 (4.00-5.60); RDW 14.5 % (11.9-15.9); WHITE BLOOD COUNT 7.8 K/mm3 (4.0-10.0)
[2018-04-01 08:31] LABS: INR 1.18 (0.82-1.09); PROTHROMBIN TIME (PATIENT) 13.3 SEC (9.7-13.0)
[2018-04-01 08:34] LABS: ACTIVATED PTT 23.3 SECONDS (26.9-34.4)
[2018-04-01 08:48] LABS: ALBUMIN 3.2 g/dl (3.4-5.0); ANION GAP 8 (8-16); BLOOD UREA NITROGEN 29 mg/dL (7-18); CALCIUM 8.1 mg/dL (8.5-10.1); CHLORIDE 105 mmol/L (98-107); CO2 25 mmol/L (21-32); CREATININE 2.2 mg/dL (0.7-1.3); GLUCOSE,RANDOM 123 mg/dL (74-106); POTASSIUM 4.4 mmol/L (3.5-5.1); SGOT/AST 29 U/L (15-37); SGPT/ALT 8 U/L (12-78); SODIUM 138 mmol/L (136-145); TOT PROT 6.8 g/dl (6.4-8.2)
[2018-04-01 08:50] LABS: ALK PHOS 356 U/L (45-117)
--- NOTE | 2018-04-01 08:55 | PN ---
Physical Exam: SUBJECTIVE: No acute events today. Pt reports Dr. Treviño saw him today and recommended surgical intervention. Pt is eager for procedure because he wants to be able to move his entire leg. Pain well controlled with the tylenol. OBJECTIVE: Vital Signs Period Temp Pulse Resp BP Sys/[place] Pulse Ox Last 24 Hr 98.2 F-99.7 F 74-84 18-20 96-129/60-88 94-97 GENERAL: Awake, alert, and fully oriented, in no acute distress. HEENT: NC/AT, EOMI, KERRY, sclera anicteric, dry-moist mucosa LUNGS: CTA bilaterally. No wheezes, and no crackles. No accessory muscle use. HEART: RRR, normal S1 and S2 without murmur appreciated ABDOMEN: Soft, nontender, nondistended, normoactive bowel sounds, no guarding, no masses. No hepatomegaly EXT: LLExt externally rotated with limitation of hip flexion/extension. ROM intact with dorsal/plantar flexion R foot and metatarsal movement. 2+ distal pulses throughout. 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 Strength of R dorsal/plantar flexion 5/5. Sensation grossly intact bilaterally. Normal speech PSYCHIATRIC: Cooperative. Good eye contact. Appropriate mood and affect. SKIN: Warm, dry, normal turgor, no rashes or lesions noted Laboratory Results - last 24 hr 03/31/18 03/31/18 03/31/18 15:33 15:33 15:33 WBC 13.4 H D RBC 4.39 Hgb 13.2 Hct 39.6 MCV 90.1 MCH 30.0 MCHC 33.3 RDW 14.1 Plt Count 279 MPV 6.3 L Neutrophils % 80.1 D Lymphocytes % 12.5 D Monocytes % 5.9 Eosinophils % 0.5 Basophils % 1.0 Nucleated RBC % 0 PT with INR 12.90 INR 1.14 PTT (Actin FS) Sodium 142 Potassium 5.0 Chloride 109 H Carbon Dioxide 26 Anion Gap 7 L BUN 24 H Creatinine 2.2 H Creat Clearance w eGFR 28.80 Random Glucose 135 H Calcium 8.9 Total Bilirubin 0.6 D AST 15 D ALT 10 L Alkaline Phosphatase 392 H Creatine Kinase 337 H Creatine Kinase Index 1.6 CK-MB (CK-2) 5.629 H Troponin I < 0.02 Total Protein 7.4 Albumin 3.6 Blood Type Antibody Screen 03/31/18 04/01/18 04/01/18 15:33 07:10 07:10 WBC 7.8 D RBC 4.12 Hgb 12.4 Hct 36.8 MCV 89.3 MCH 30.1 MCHC 33.7 RDW 14.5 Plt Count 249 MPV 6.5 L Neutrophils % Lymphocytes % Monocytes % Eosinophils % Basophils % Nucleated RBC % PT with INR 13.30 H INR 1.18 H PTT (Actin FS) 23.3 L Sodium Potassium Chloride Carbon Dioxide Anion Gap BUN Creatinine Creat Clearance w eGFR Random Glucose Calcium Total Bilirubin AST ALT Alkaline Phosphatase Creatine Kinase Creatine Kinase Index CK-MB (CK-2) Troponin I Total Protein Albumin Blood Type O POSITIVE Antibody Screen Negative 04/01/18 07:10 WBC RBC Hgb Hct MCV MCH MCHC RDW Plt Count MPV Neutrophils % Lymphocytes % Monocytes % Eosinophils % Basophils % Nucleated RBC % PT with INR INR PTT (Actin FS) Sodium 138 Potassium 4.4 Chloride 105 Carbon Dioxide 25 Anion Gap 8 BUN 29 H D Creatinine 2.2 H Creat Clearance w eGFR 28.80 Random Glucose 123 H Calcium 8.1 L Total Bilirubin 1.0 D AST 29 D ALT 8 L Alkaline Phosphatase 356 H Creatine Kinase Creatine Kinase Index CK-MB (CK-2) Troponin I Total Protein 6.8 Albumin 3.2 L Blood Type Antibody Screen Active Medications Generic Name Dose Route Start Last Admin Trade Name Freq PRN Reason Stop Dose Admin Acetaminophen 1,000 mg 03/31/18 22:30 04/01/18 06:42 Ofirmev Injection - IVPB 1,000 mg Q6H PRN Administration PAIN LEVEL 6-10 ASSESSMENT/PLAN: 1) R mid-femoral fracture --Dr. Treviño with recommendation for IMJ nail intervention --NPO remains --Pt does not require pulmonology consult due to not being in exacerbation and clear lungs on exam and CXR previously --EKG unchanged from previous baseline --Pt mets >5 (goes dancing regularly) --Heparin has been held since admission --Moderate risk procedure for low risk pt --Currently pain controlled with Ofirmev 2) Elevated Alkaline phosphatase --GGT WNL; no need for RUQ ultrasound --Possible due to acute fracture; monitor 3) CKD --Pt currently at baseline of 2.2 --Avoid nephrotoxic substances --Monitor Cr FEN: Fluids: None indicated; can start diet post-surgery Electrolyte abnormalities: none currently; monitor K Nutrition: NPO for possible procedure PPX: DVT - SCD L leg; holding heparin due to procedure and per surgery for restart GI - Protonix IVP 40mg qdaily Pre-op: Moderate risk procedure for low risk pt due to age and COPD/tobacco use ; mets >5 at baseline Dispo: OR today; continue M/S monitoring Case discussed with Dr. Christ Jaime, DO - IM PGY-1 Visit type - Emergency Visit Emergency Visit: No - New Patient This patient is new to me today: No - Critical Care Critical Care patient: No
--- NOTE | 2018-04-01 09:12 | PN ---
Progress Note (short form) - Note Progress Note: Pt seen and examined. He is an 83 yo M pt 1 day s/p fall, with c/o pain right hip and thigh. + h/o COPD, 60 + pack years of smoking, stopped smoking 1 year ago. Unable to ambulate. Was a full ambulator prior to fall. Xrays Show a displaced right midshaft femur fracture Imp 83 yo M 1 day s/p fall with a displaced right midshaft femur fracture. Rec Pt needs surgery: right femur intramedullary trina Keep NPO in case pt gets cleared for surgery today Medical (? and pulmonary ?) clearance All questions and concerns, risks, benefits discussed with pt
--- NOTE | 2018-04-01 09:48 | EKG ---
Test Reason : Blood Pressure : / mmHG Vent. Rate : 079 BPM Atrial Rate : 079 BPM P-R Int : 178 ms QRS Dur : 086 ms QT Int : 358 ms P-R-T Axes : -11 -42 -16 degrees QTc Int : 410 ms POOR DATA QUALITY, INTERPRETATION MAY BE ADVERSELY AFFECTED NORMAL SINUS RHYTHM LEFT AXIS DEVIATION LOW VOLTAGE QRS CANNOT RULE OUT ANTERIOR INFARCT (CITED ON OR BEFORE 31-MAR-2018) ABNORMAL ECG WHEN COMPARED WITH ECG OF 21-MAR-2018 08:46, T WAVE INVERSION NOW EVIDENT IN LATERAL LEADS Confirmed by ANUSHA HARDEN MD ([id number]) on 04/01/2018 9:48:00 AM Referred By: Confirmed By:ANUSHA HARDEN MD
[2018-04-01] MEDS ORDERED: SODIUM CHLORIDE 1,000 ML IV SCH (13:45)
[2018-04-01 13:51] LABS: GAMMA GLUTAMYL TRANSPEPTIDASE 32 U/L (5-85)
--- NOTE | 2018-04-01 13:55 | PN ---
Teaching Attending Note Name of Resident: Kiel Jaime ATTENDING PHYSICIAN STATEMENT I saw and evaluated the patient. I reviewed the resident's note and discussed the case with the resident. I agree with the resident's findings and plan as documented. SUBJECTIVE: minimal pian in R thigh. no SOB , no fever or chills. normally, he climbs 2 flights of stairs, and walks up the hill with no SOB, or CP. he denies any anginal sx , or heart disese. he denies any SOB or wheezing . COPD is well controlled , and has not had sx lately OBJECTIVE: NAD, AAOx3. . dry MM. symmeric face Cv: RRR, no MRG 'Lungs : CTAB Abd: soft, Nt, ND , NL BS Ext: TTP and edema on mid R thigh .RLE is shorter and externally rotated. DP 2+ b/l. nl sensation and movement of ankles and toes ASSESSMENT AND PLAN: 83 y.o man with h/o HTN, HLp, hypothyroidism, OCPD and lymphoma s/p chemo and other medical problems who presented after a fall and was found to have R femoral shaft fracture. 1- R femoral shaft fracture: - pain control. - for OR today - bowel regimen and DVT px after sx - start IVF as he is volume depleted now - this is an intermediate risk procedure. the patient himself has no active cardiac or pulmonary issues. no signs of arrhythmias, or new ischemic EKG changes, his functional capacity indicates 4-10 METS. this puts him at a low risk for intermediate risk procedure for developing carson-op cardiac complications No further cardiac or pulmonary w/u needed . 2- h/o HTN: will resume his lisinopril after sx 3-elevated Alk phos. seen on 03/21. no abd tenderness or other LFTs abn. - GGT pending , need to r/o bone source - if GGT, NL , will get US 4- h/o hypothyroidism : resume synthroid . 5- CKD : stable Cr Dispo : HLOC . possible rehab after dc
[2018-04-01 15:30] LABS: URINE APPEARANCE SLCLOUDY; URINE BILIRUBIN NEGATIVE (<2.0 mg/dL); URINE BLOOD 1+ (NEGATIVE); URINE COLOR YELLOW; URINE GLUCOSE (UA) NEGATIVE (NEGATIVE); URINE KETONE NEGATIVE (NEGATIVE); URINE LEUK ESTERASE NEGATIVE (NEGATIVE); URINE NITRITE NEGATIVE (NEGATIVE); URINE UROBILINOGEN NEGATIVE mg/dL (0.2-1.0)
[2018-04-01 15:36] LABS: URINE PROTEIN 1+ (NEGATIVE)
[2018-04-01 15:51] LABS: EPI CELLS RARE /HPF (FEW); URINE MUCUS RARE
[2018-04-01] MEDS ORDERED: BUPIVACAINE HCL/PF 0.5% (5MG/ML) 10 ML VIAL ONE (16:03)
[2018-04-01] MEDS ORDERED: MIDAZOLAM HCL 2 MG/2 ML SINGLE DOSE VIAL ONE ×2 (16:07→16:49)
[2018-04-01] MEDS ORDERED: PROPOFOL 20 ML ONE (16:19)
[2018-04-01] MEDS ORDERED: ceFAZolin SODIUM 1 GM VIAL IVPB ONE (16:32)
[2018-04-01] MEDS ORDERED: ceFAZolin SODIUM 1 GM VIAL ONE (16:38)
[2018-04-01] MEDS ORDERED: ONDANSETRON 4 MG/2 ML VIAL IVPUSH PRN (17:25)
[2018-04-01] MEDS ORDERED: LACTATED RINGERS SOLUTION 1,000 ML IV SCH (17:30)
--- NOTE | 2018-04-01 18:13 | OP ---
Operative Note - Note: Operative Date: 04/01/18 Pre-Operative Diagnosis: right midshaft femur fracture Operation: right femur intramedullary nail Implants: [place]ugh titanium 380 mm Gamma Nail G3, 95 mm lag screw, 40mm distal locking screw Post-Operative Diagnosis: Same as Pre-op Surgeon: Baldev Treviño Anesthesiologist/ECONOMICS INSTRUCTOR: Tiffany Melara Anesthesia: Spinal, MAC Estimated Blood Loss (mls): 75 Drains, Volume Out (mls): 0 Blood Volume Replaced (mls): 0 Fluid Volume Replaced (mls): 900 Operative Report Dictated: Yes
[2018-04-01] MEDS: SODIUM CHLORIDE 1,000 ML IV SCH ×2 (19:20→19:42)
--- NOTE | 2018-04-01 19:52 | OP ---
DATE OF OPERATION: 04/01/2018 PREOPERATIVE DIAGNOSIS: Right mid-shaft femur fracture. POSTOPERATIVE DIAGNOSIS: Right mid-shaft femur fracture. PROCEDURE: Right femur intramedullary nail/Gamma nail. IMPLANTS: Chan titanium G3 Gamma nail 380 mm, 95-mm lag screw, 40-mm distal interlocking screw. DRAINS: None. COMPLICATIONS: None. BLOOD LOSS: 75 mL BLOOD GIVEN: None. FLUID REPLACEMENT: Plasmalyte 900 mL. SPECIMEN: None. This patient is an 83-year-old male with the preoperative diagnosis of a right mid-shaft femur fracture. After understanding the potential risks, complications, alternatives, benefits of surgery versus nonsurgical treatment, patient elected to undergo this procedure. The patient was brought to the operating room, peripheral IV placed, IV sedation given. One gram of IV Ancef was given. MAC anesthesia was induced after a spinal was done. Patient was placed onto the fracture table with ample padding throughout on the perineal posts and the ankles. A provisional reduction was done. X-rays were taken. Next, the right lower extremity was prepped and draped in a sterile fashion. An incision made with a number 10 scalpel blade. Subcutaneous hemostasis achieved with the Bovie cautery. Dissection done down through the lateral fascia and to the top of the right femur greater trochanter. Next, under direct visualization, I put in a threaded guidewire and used a proximal reamer. Position was checked in both the AP and lateral planes. Next, I put a little bend in the long ball-tip guidewire and passed it down. The proximal fragment was difficult to reduce; so, I used a crutch to align the distal fragment. Then, I was able to pass the guidewires. Position was confirmed in the AP and lateral planes. I then took tension off the fracture site and was able to compress the fracture site as much as possible. Next, with the standard [place] G3 Gamma nail external jig, I put in a 95-mm proximal lag screw in the slightly inferior/slightly posterior position and locked it into place with a proximal set screw. The jig was removed. Final x-rays taken in the AP and lateral planes of the proximal aspect as well as the fracture site. Next, using the "perfect circles technique," I put in a 40-mm distal interlocking screw. Its position was documented in AP and lateral planes. The x-rays were taken of the distal trina as well as the fracture site. Again, overall, things looked quite good. The area was copiously irrigated and washed out. The deep fascial layer closed in the proximal wound with a running baseball stitch with 0 Vicryl suture, 2-0 Vicryl was used in the deep dermal layer in all 3 incisions, and then, shivam used to reapproximate the skin. The area was then washed and dried and covered with 3 Aquacel dressings. Total operative time was 60 minutes. There were no complications during the case. The patient tolerated the procedure quite well. Blood loss was 75 mL. No events. He was brought to the regular recovery room in stable condition. AJ HELMS M.D. [id number]
[2018-04-01] MEDS: DOCUSATE SODIUM 100 MG CAPSULE (FP) PO SCH (21:09)
[2018-04-01] MEDS: ATORVASTATIN CA 40 MG TABLET (FP) PO SCH (21:09)
[2018-04-01] MEDS ORDERED: CEFAZOLIN 2 GM/D5W 2 GM/50 ML ML IVPB SCH (23:00)
[2018-04-01] MEDS: CEFAZOLIN 2 GM/D5W 2 GM/50 ML ML IVPB SCH (23:21)
[2018-04-02] MEDS: ACETAMINOPHEN 1000 MG/100 ML VIAL (NON FORMULARY) IVPB PRN (05:34)
[2018-04-02] MEDS: SODIUM CHLORIDE 1,000 ML IV SCH ×2 (06:07→20:02)
[2018-04-02] MEDS: DOCUSATE SODIUM 100 MG CAPSULE (FP) PO SCH ×3 (06:14→21:00)
[2018-04-02] MEDS: CEFAZOLIN 2 GM/D5W 2 GM/50 ML ML IVPB SCH (06:14)
[2018-04-02] MEDS: LEVOTHYROXINE NA 112 MCG TABLET (FP) PO SCH (06:15)
[2018-04-02 08:07] LABS: HEMATOCRIT 30.1 % (35.4-49); HEMOGLOBIN 10.2 GM/dL (11.7-16.9); MCH 30.5 pg (25.7-33.7); MCHC 33.8 g/dl (32.0-35.9); MEAN CELL VOLUME 90.1 fl (80-96); MEAN PLT VOLUME 6.5 fl (7.5-11.1); PLATELET COUNT 213 K/MM3 (134-434); RBC 3.35 M/mm3 (4.00-5.60); RDW 14.3 % (11.9-15.9); WHITE BLOOD COUNT 7.8 K/mm3 (4.0-10.0)
[2018-04-02 08:18] LABS: CHLORIDE 107 mmol/L (98-107); POTASSIUM 4.8 mmol/L (3.5-5.1); SODIUM 138 mmol/L (136-145)
[2018-04-02] MEDS ORDERED: ACETAMINOPHEN 325 MG TABLET (FP) PO PRN (08:26)
[2018-04-02 08:35] LABS: BLOOD UREA NITROGEN 35 mg/dL (7-18)
--- NOTE | 2018-04-02 08:36 | PN ---
Physical Exam: SUBJECTIVE: POD1; no events overnight. Pt passing flatus with no BM today. Pt agreeable to rehab facility if necessary. Pt reports pain currently being controlled with Tylenol and not really bothering him at the present time. Denies any fever/chills. OBJECTIVE: Vital Signs Period Temp Pulse Resp BP Sys/Hargrove Pulse Ox Last 24 Hr 98.0 F-99.2 F 72-102 16-21 85-137/57-92 96-100 GENERAL: Awake, alert, and fully oriented, in no acute distress. HEENT: NC/AT, EOMI, KERRY, sclera anicteric, dry mucosa LUNGS: CTA bilaterally. No wheezes, and no crackles. No accessory muscle use. HEART: RRR, normal S1 and S2 without murmur appreciated ABDOMEN: Soft, nontender, nondistended, normoactive bowel sounds, no guarding, no masses. No hepatomegaly EXT: LLExt in normal orientation. Bandage to lateral thigh area. ROM intact with dorsal/plantar flexion R foot and metatarsal movement. 2+ distal pulses throughout. No edema PSYCHIATRIC: Cooperative. Good eye contact. Appropriate mood and affect. SKIN: Warm, dry, normal turgor, no rashes noted Laboratory Results - last 24 hr 04/01/18 04/01/18 04/01/18 07:10 07:10 07:10 WBC RBC Hgb Hct MCV MCH MCHC RDW Plt Count MPV PT with INR 13.30 H INR 1.18 H PTT (Actin FS) 23.3 L Sodium 138 Potassium 4.4 Chloride 105 Carbon Dioxide 25 Anion Gap 8 BUN 29 H D Creatinine 2.2 H Creat Clearance w eGFR 28.80 Random Glucose 123 H Calcium 8.1 L Total Bilirubin 1.0 D GGT 32 Cancelled AST 29 D ALT 8 L Alkaline Phosphatase 356 H Total Protein 6.8 Albumin 3.2 L Urine Color Urine Appearance Urine pH Ur Specific Baring Urine Protein Urine Glucose (UA) Urine Ketones Urine Blood Urine Nitrite Urine Bilirubin Urine Urobilinogen Ur Leukocyte Esterase Urine WBC (Auto) Urine RBC (Auto) Ur Epithelial Cells Urine Mucus 04/01/18 04/02/18 04/02/18 14:20 07:00 07:00 WBC 7.8 RBC 3.35 L Hgb 10.2 L D Hct 30.1 L D MCV 90.1 MCH 30.5 MCHC 33.8 RDW 14.3 Plt Count 213 MPV 6.5 L PT with INR INR PTT (Actin FS) Sodium 138 Potassium 4.8 Chloride 107 Carbon Dioxide Anion Gap BUN Creatinine Creat Clearance w eGFR Random Glucose Calcium Total Bilirubin GGT AST ALT Alkaline Phosphatase Total Protein Albumin Urine Color Yellow Urine Appearance Slcloudy Urine pH 5.0 Ur Specific Baring 1.028 Urine Protein 1+ H Urine Glucose (UA) Negative Urine Ketones Negative Urine Blood 1+ H Urine Nitrite Negative Urine Bilirubin Negative Urine Urobilinogen Negative Ur Leukocyte Esterase Negative Urine WBC (Auto) 6 Urine RBC (Auto) 5 Ur Epithelial Cells Rare Urine Mucus Rare Active Medications Generic Name Dose Route Start Last Admin Trade Name Freq PRN Reason Stop Dose Admin Acetaminophen 650 mg 04/02/18 08:26 Tylenol - PO Q4H PRN Pain 4-10 Atorvastatin Calcium 40 mg 04/01/18 22:00 04/01/18 21:09 Lipitor - PO 40 mg HS LON Administration Budesonide/Formoterol Fumarate 1 puff 04/02/18 10:00 Symbicort 160/4.5mcg - IH DAILY [facility] Docusate Sodium 100 mg 04/01/18 22:00 04/02/18 06:14 Colace - PO 100 mg TID LON Administration Enoxaparin Sodium 40 mg 04/02/18 10:00 Lovenox - SQ DAILY [facility] Sodium Chloride 1,000 mls @ 83 mls/hr 04/01/18 18:15 04/02/18 06:07 Normal Saline - IV 83 mls/hr ASDIR LON Administration Levothyroxine Sodium 112 mcg 04/02/18 07:00 04/02/18 06:15 Synthroid - PO 112 mcg DAILY@0700 LON Administration Lisinopril 20 mg 04/02/18 10:00 Prinivil PO DAILY [facility] ASSESSMENT/PLAN: 1) R mid-femoral fracture --POD1 IMJ nail intervention performed by Dr. Treviño --Sodium controlled diet --Heparin SQ resumed --Pain control Tylenol 650mg q6h PRN 4-6 pain --PT eval today --Pt already passing flatus --Rehab [facility] with [facility] for [facility] due to proximity to pt's home 2) Elevated Alkaline phosphatase --GGT WNL; no need for RUQ ultrasound or further inpatient workup 3) CKD --Pt currently at baseline of 2.2 --Avoid nephrotoxic substances --Monitor Cr FEN: Fluids: NS@83cc/hr Electrolyte abnormalities: none currently Nutrition: Sodium controlled diet PPX: DVT - Heparin SQ GI - Protonix IVP 40mg qdaily Dispo: D/C planning with rehab Case discussed with Dr. Christ Jaime, DO - IM PGY-1 Visit type - Emergency Visit Emergency Visit: No - New Patient This patient is new to me today: No - Critical Care Critical Care patient: No
[2018-04-02 08:54] LABS: ANION GAP 9 (8-16); CALCIUM 7.5 mg/dL (8.5-10.1); CO2 22 mmol/L (21-32); CREATININE 2.4 mg/dL (0.7-1.3); GLUCOSE,RANDOM 105 mg/dL (74-106)
[2018-04-02] MEDS ORDERED: PT OWN MED DRAWER 7, Y5N ONE (09:03)
[2018-04-02] MEDS: ENOXAPARIN NA (PORCINE) 40 MG/0.4 ML DISP.SYRIN SQ SCH (09:08)
[2018-04-02] MEDS: BUDESONIDE/FORMETEROL FUMARATE 160/4.5 mcg INHALER IH SCH (09:09)
[2018-04-02] MEDS: LISINOPRIL 20 MG TABLET (FP) PO SCH (09:09)
--- NOTE | 2018-04-02 09:41 | PN ---
Progress Note (short form) - Note Progress Note: Pt seen and examined. He is 1 day s/p right long Gamma nail. Much less pain. No SOB, no CP. AVSS H/H nl at 10.2/30.1 B/L LE NVI Good ROM at the right knee, ankle, foot, toes. Equal leg lengths Dressing CDI Overall doing very well. Rec P.T., light PWB RLE Start DC planning, SNF Can likely DC tomorrow
[2018-04-02] MEDS ORDERED: ENOXAPARIN NA (PORCINE) 40 MG/0.4 ML DISP.SYRIN SQ SCH (10:00)
[2018-04-02] MEDS: ACETAMINOPHEN 325 MG TABLET (FP) PO PRN ×3 (11:34→21:01)
--- NOTE | 2018-04-02 12:40 | PN ---
Progress Note, Physician Chief Complaint: day #1 postop - Current Medication List Current Medications: Active Medications Acetaminophen (Tylenol -) 650 mg PO Q4H PRN PRN Reason: Pain 4-10 Last Admin: 04/02/18 11:34 Dose: 650 mg Atorvastatin Calcium (Lipitor -) 40 mg PO HS [facility] Last Admin: 04/01/18 21:09 Dose: 40 mg Budesonide/Formoterol Fumarate (Symbicort 160/4.5mcg -) 1 puff IH DAILY [facility] Last Admin: 04/02/18 09:09 Dose: 1 puff Docusate Sodium (Colace -) 100 mg PO TID [facility] Last Admin: 04/02/18 06:14 Dose: 100 mg Enoxaparin Sodium (Lovenox -) 40 mg SQ DAILY [facility] Last Admin: 04/02/18 09:08 Dose: 40 mg Sodium Chloride (Normal Saline -) 1,000 mls @ 83 mls/hr IV ASDIR [facility] Last Admin: 04/02/18 06:07 Dose: 83 mls/hr Levothyroxine Sodium (Synthroid -) 112 mcg PO DAILY@0700 [facility] Last Admin: 04/02/18 06:15 Dose: 112 mcg Lisinopril (Prinivil) 20 mg PO DAILY [facility] Last Admin: 04/02/18 09:09 Dose: 20 mg - Objective Vital Signs: Vital Signs Temperature 99.2 F 04/02/18 08:39 Pulse Rate 86 04/02/18 10:00 Respiratory Rate 18 04/02/18 10:00 Blood Pressure 143/87 04/02/18 10:00 O2 Sat by Pulse Oximetry (%) 97 04/02/18 09:00 Labs: CBC, BMP 04/02/18 07:00 04/02/18 07:00 INR, PTT INR 1.18 (0.82-1.09) H 04/01/18 07:10 Assessment/Plan doing well after spinal for R gamma nail. No pain
--- NOTE | 2018-04-02 13:20 | PN ---
Teaching Attending Note Name of Resident: Kiel Jaime ATTENDING PHYSICIAN STATEMENT I saw and evaluated the patient. I reviewed the resident's note and discussed the case with the resident. I agree with the resident's findings and plan as documented. SUBJECTIVE: No fever or chills. minimal pain to R thigh. OBJECTIVE: NAD, AAOx3. Still slightly dry MM Cv: RRR, no MRG Lungs : CTAB Ext: TTP and edema on mid R thigh .with surgical dressings on lateral R thigh . DP 2+ b/l. nl sensation and movement of ankles and toes ASSESSMENT AND PLAN: 83 y.o man with h/o HTN, HLp, hypothyroidism,CKD, OCPD and lymphoma s/p chemo and other medical problems who presented after a fall and was found to have R femoral shaft fracture. 1- R femoral shaft fracture s/p gamma nail 04/01 . - Hb stable - pain control with tylenol - DVT px - bowel regimen - PT eval 2- h/o HTN: cont lisinopril 3-Elevated Alk phos with NL GGT indicates a bone source. was elevated on 03/21 even before his fracture. . will need further investigation as out pt ( osteoporosis, Bone mets , ...) 4- h/o hypothyroidism : resume synthroid . 5- CKD : stable Cr . cont IVF for now , may stop tomorrow Dispo : possible dc tomorrow
[2018-04-02] MEDS: ATORVASTATIN CA 40 MG TABLET (FP) PO SCH (21:00)
[2018-04-03] MEDS: ACETAMINOPHEN 325 MG TABLET (FP) PO PRN ×2 (03:08→09:33)
[2018-04-03] MEDS: LEVOTHYROXINE NA 112 MCG TABLET (FP) PO SCH (06:10)
[2018-04-03] MEDS: DOCUSATE SODIUM 100 MG CAPSULE (FP) PO SCH ×2 (06:10→13:18)
[2018-04-03] MEDS: SODIUM CHLORIDE 1,000 ML IV SCH (06:15)
[2018-04-03 08:05] LABS: HEMATOCRIT 27.9 % (35.4-49); HEMOGLOBIN 9.3 GM/dL (11.7-16.9); MCH 30.1 pg (25.7-33.7); MCHC 33.3 g/dl (32.0-35.9); MEAN CELL VOLUME 90.5 fl (80-96); MEAN PLT VOLUME 6.6 fl (7.5-11.1); PLATELET COUNT 225 K/MM3 (134-434); RBC 3.08 M/mm3 (4.00-5.60); RDW 14.4 % (11.9-15.9); WHITE BLOOD COUNT 7.9 K/mm3 (4.0-10.0)
[2018-04-03 08:53] LABS: ANION GAP 8 (8-16); BLOOD UREA NITROGEN 40 mg/dL (7-18); CALCIUM 7.7 mg/dL (8.5-10.1); CHLORIDE 111 mmol/L (98-107); CO2 21 mmol/L (21-32); CREATININE 2.2 mg/dL (0.7-1.3); GLUCOSE,RANDOM 95 mg/dL (74-106); POTASSIUM 4.6 mmol/L (3.5-5.1); SODIUM 140 mmol/L (136-145)
[2018-04-03] MEDS: LISINOPRIL 20 MG TABLET (FP) PO SCH (09:22)
[2018-04-03] MEDS: BUDESONIDE/FORMETEROL FUMARATE 160/4.5 mcg INHALER IH SCH (09:22)
[2018-04-03] MEDS: ENOXAPARIN NA (PORCINE) 40 MG/0.4 ML DISP.SYRIN SQ SCH (09:22)
[2018-04-03] MEDS ORDERED: PT OWN MED DRAWER 7, Y5N ONE (10:05)
--- NOTE | 2018-04-03 11:08 | PN ---
Progress Note (short form) - Note Progress Note: Ortho Pt seen and examined s/p right IM gamma nail pod #2 Selected Entries 04/03/18 09:25 Temperature 98.3 F Pulse Rate 83 Respiratory 18 Rate Blood Pressure 123/77 Laboratory Tests 04/03/18 07:00 WBC 7.9 Hgb 9.3 L Hct 27.9 L Plt Count 225 dressing c/d/i, calf soft, nt nvi a/p PT dvt ppx pain control d/c planning
[2018-04-03] MEDS ORDERED: ACETAMINOPHEN 325 MG TABLET (FP) PO PRN (12:39)
[2018-04-03] MEDS ORDERED: oxyCODONE HCL 5 MG TABLET PO PRN (12:39)
[2018-04-03] MEDS ORDERED: oxyCODONE HCL 5 MG TABLET PO ONE (12:45)
[2018-04-03] MEDS ORDERED: ACETAMINOPHEN 325 MG TABLET (FP) PO ONE (12:45)
[2018-04-03 14:33] VITALS: BP 99/57; PULSE 91; TEMP 99
--- NOTE | 2018-04-03 16:21 | DS ---
Physical Exam: SUBJECTIVE: No complaints overnight. Pt reports walking to door and back with physical therapy. Tolerating food w/o n/v and abdominal pain. Pt passing flatus , but has not had BM which he attributes to eating small amounts. OBJECTIVE: Vital Signs Period Temp Pulse Resp BP Sys/Hargrove Pulse Ox Last 24 Hr 98.3 F-99.0 F 82-91 18-20 99-140/57-77 96-96 PHYSICAL EXAM GENERAL: Awake, alert, and fully oriented, in no acute distress. HEENT: NC/AT, EOMI, KERRY, sclera anicteric, dry mucosa LUNGS: CTA bilaterally. No wheezes, and no crackles. No accessory muscle use. HEART: RRR, normal S1 and S2 without murmur appreciated ABDOMEN: Soft, nontender, nondistended, normoactive bowel sounds, no guarding, no masses. No hepatomegaly EXT: LLExt in normal orientation and length. Bandage to lateral thigh area noted. ROM intact with dorsal/plantar flexion R foot and metatarsal movement. 2 + distal pulses throughout. No edema PSYCHIATRIC: Cooperative. Good eye contact. Appropriate mood and affect. SKIN: Warm, dry, normal turgor, no rashes noted LABS Laboratory Results - last 24 hr 04/03/18 04/03/18 07:00 07:00 WBC 7.9 RBC 3.08 L Hgb 9.3 L Hct 27.9 L MCV 90.5 MCH 30.1 MCHC 33.3 RDW 14.4 Plt Count 225 MPV 6.6 L Sodium 140 Potassium 4.6 Chloride 111 H Carbon Dioxide 21 Anion Gap 8 BUN 40 H Creatinine 2.2 H Random Glucose 95 Calcium 7.7 L Laboratory Tests 03/31/18 04/01/18 15:33 07:10 Alkaline Phosphatase 392 H 356 H Laboratory Tests 04/01/18 07:10 GGT 32 HOSPITAL COURSE: Date of Admission:03/31/18 Date of Discharge: 04/03/18 Pt was admitted on 03/31/18 after slipping on his new floor and having a mechanical fall. Pt went to return to standing and was unable to to stand which prompted further workup in the ER. Unfortunately pt was found to have a R comminuted mid femur fracture and orthopedics was consulted. Dr. Lange recommended operative treatment of his fracture and he was brought to the OR. Pt received spinal localized anesthesia and had a R gamma nail procedure (implant: Chan titanium 380 mm Gamma Nail G3, 95 mm lag screw, 40mm distal locking screw) without complication. Pt on POD#0 began to pass gas and tolerated his pain with only IV Tylenol 1gm. In addition pt only walked 10 feet with minimal assistance of 2 with walker. On POD#2, pt has minimal pain with continued flatus and tolerance of food w/o n/v. Pt is being discharged to SNF for rehabillitation purposes. He is being discharged in stable condition with instructions to follow-up with Dr. Treviño/Nazario (orthopedic surgeons) in 1 week. In that time pt is to continue SCDs (leg compression devices) and to take an ASA 81mg PO qDaily to combat DVTs. Once evaluated Dr. Treviño/Nazario can recommend to continue or discontinue as needed. He also has instructions to follow-up with Dr. Foreman in 2-3 weeks and to f/u with his Alkaline phosphatase as it was elevated to 356 (which was unknown if trauma to his femur caused some elevation). Pt's pain control during rehab is to have Tylenol 650mg q6h for pain 4-6 and Percocet 5-325mg PO q6h for pain 6-10 While he is requiring pain medication he is to continue Colace 100mg TID PO and Miralax 17gm PO qDaily to combat narcotic-induced constipation Additional Imaging: Hip/Pelvis and R Leg XR: Comminuted fracture of the mid right femur. CXR: No acute pathology Minutes to complete discharge: 35 Discharge Summary Reason For Visit: FRACTURE OF FEMUR Current Active Problems Femoral fracture (Acute) Condition: Improved - Instructions Diet, Activity, Other Instructions: You were seen here for your femur fracture after your fall. You had a surgery to fix your R leg and have been recovering quite well. You are being sent to a rehab facility MEDICATIONS: We are sending you with instructions to use tylenol 605m once every 6 hours if you have a pain level 4-6 and also Percocet 5-325mg once every 6 hours if you have pain level 7-10. While you are taking pain medications you will be sent on some stool softeners, Colace 100mg Three times per day and Miralax 1 tab daily as needed Your are continue Leg compression devices and to take an aspirin 81mg ONCE per day to combat the risk of blood clots forming in your legs --You will be re-evaluated in 1 week and the orthopedic surgeons will recommend whether this should continue or not. FOLLOW-UP: Please follow-up with Dr. Foreman in 2-3 weeks to follow-up with your recovery progress --You will also need to follow-up with your Alkaline Phos lab because it was elevated, however this may be due to your fracture. --Repeat lab is in order when your bone is healed in roughly 4-6 weeks. In addition please see Dr. Lange (orthopedic surgeon) to evaluate your recovery in 1 week. Referrals: Porter Foreman MD [Primary Care Provider] - 2 Weeks Martin Lange MD [Staff Physician] - 1 Week Disposition: RETIREMENT FACILITY - Home Medications Comprehensive Discharge Medication List: Ambulatory Orders Lisinopril [Prinivil] 20 mg PO DAILY 02/09/17 Budesonide/Formeterol Fumarate [SYMBICORT 160/4.5mcg -] 1 inh PO DAILY #1 cannister 02/12/17 Atorvastatin Ca [Lipitor] 40 mg PO HS 03/21/18 Famotidine [Pepcid] 20 mg PO BID #28 tablet 03/21/18 Levothyroxine [Synthroid -] 112 mcg PO DAILY@0700 03/21/18 Acetaminophen [Tylenol .Regular Strength -] 650 mg PO Q6H PRN tablet 04/03/18 Docusate Sodium [Colace -] 100 mg PO TID capsule 04/03/18 Enoxaparin [Lovenox -] 40 mg SQ DAILY disp.syrin 04/03/18 Oxycodone HCl/Acetaminophen [Percocet 5-325 mg Tablet] 1 tab PO Q6H PRN #20 tablet MDD 4 tabs 04/03/18 Polyethylene Glycol 3350 [Miralax (For Daily Use) -] 17 gm PO DAILY #1 bottle This patient is new to me today: No Emergency Visit: No Critical Care patient: No - Discharge Referral Referred to [facility] Med P.C.: No
--- NOTE | 2018-04-03 17:43 | PN ---
Teaching Attending Note Name of Resident: Kiel Jaime ATTENDING PHYSICIAN STATEMENT I saw and evaluated the patient. I reviewed the resident's note and discussed the case with the resident. I agree with the resident's findings and plan as documented. SUBJECTIVE: pain is controlled withpain meds OBJ: NAD, AAOx3. MMM Cv: RRR, no MRG Lungs : CTAB Ext: TTP and edema on mid R thigh .with surgical dressings on lateral R thigh . DP 2+ b/l. nl sensation and movement of ankles and toes ASSESSMENT AND PLAN: 83 y.o man with h/o HTN, HLp, hypothyroidism,CKD, OCPD and lymphoma s/p chemo and other medical problems who presented after a fall and was found to have R femoral shaft fracture. 1- R femoral shaft fracture s/p gamma nail 04/01 . - pain control with tylenol and add low dose percocet - DVT px after dc: d/w ortho, aspirin 81 mg was recommended - bowel regimen - PT at rehab 2- h/o HTN: cont lisinopril 3-Elevated Alk phos with NL GGT indicates a bone source. was elevated on 03/21 even before his fracture. . will need further investigation as out pt 4- h/o hypothyroidism : synthroid . 5- CKD : stable Cr . Dispo :dc to rehab today
== END 2018-04-03 20:53 | DRG 481 ==
LOC: JER 14:11 → JERBED 16:40 → J6S 21:21
PROVIDERS: ADMIT Internal Medicine; ATTEND Internal Medicine
PROC: 0QS806Z Reposition Right Femoral Shaft with Intramedullary Internal Fixation Device, Open Approach (ICD-10-PCS; principal; 2018-04-01 13:00)
DX: S72.351A Displaced comminuted fracture of shaft of right femur, initial encounter for closed fracture (principal); C85.90 Non-Hodgkin lymphoma, unspecified, unspecified site; E78.5 Hyperlipidemia, unspecified; E03.9 Hypothyroidism, unspecified; I44.4 Left anterior fascicular block; J44.9 Chronic obstructive pulmonary disease, unspecified; Z87.891 Personal history of nicotine dependence; I12.9 Hypertensive chronic kidney disease with stage 1 through stage 4 chronic kidney disease, or unspecified chronic kidney disease; N18.9 Chronic kidney disease, unspecified; W01.0XXA Fall on same level from slipping, tripping and stumbling without subsequent striking against object, initial encounter; Y93.89 Activity, other specified; Y92.098 Other place in other non-institutional residence as the place of occurrence of the external cause; Y99.8 Other external cause status
CPT/HCPCS: 36415; 71045-TC-FY; 73523-TC-FY; 73552-TC-RT-FY; 76000-TC-FY; 80048; 80053; 81003; 81015; 82550; 82553; 82977; 84484; 85025; 85027; 85610; 85730; 86850; 86900; 86901; 93005; 93010; 94010; 94760; 97116-GP; 97162-GP; 99284-25; J0131; J7030

== ENCOUNTER 2018-04-09 13:13 | Inpatient (IN) | payer OTHER ==
[2018-04-09] MEDS ORDERED: DOPAMINE 400 MG/D5W - 400,000 MCG/250 ML INFUS.BAG IVPB ONE (13:57)
--- NOTE | 2018-04-09 13:58 | PDOC ---
Attending Attestation - Resident Resident Name: Osman Forrest - HPI HPI: 04/09/18 18:58 Pt presents to the ED [facility] for abdominal pain and distention. On arrival to the ED, patient is hypotensive and altered. INitial BP in the 50s. Unable to give history. - Physicial Exam PE: 04/09/18 19:00 Agree with resident exam. Patient was altered on my initial exam, and extremely hypotenisive. + rhonchorous breath sounds. + distended, tender abdomen. + bruising and surgical incisions on the R leg, without signs of infection. - Critical Care Time Total Critical Care Time: 60 Critical Care Statement: The care of this patient involved high complexity decision making to prevent further life threatening deterioration of the patient 's condition and/or to evaluate & treat vital organ system(s) failure or risk of failure. - Medical Decision Making 04/09/18 19:02 Pt presents to the ED hypotensive, hypoxic and confused, with rhonchorous respirations. Central line placed shortly after arrival for the administration of pressors. Patient has improved somewhat on levophed, but remains hypotensive and lethargic. Broad spectrum abx started. Family is at the bedside and understands that patient has an extremely poor prognosis. Labs show lactic acidosis, renal failure and elevated WBC count. Family Do not want confort care at this time.
[2018-04-09] MEDS ORDERED: VANCOMYCIN 1,500 MG in DEXTROSE 5%-WATER - 250 ML IVPB ONE (13:59)
[2018-04-09] MEDS ORDERED: PIPERACILLIN/TAZOB 3.375 GM 3.375 GM in DEXTROSE 5%-WATER - 50 ML IVPB ONE (13:59)
[2018-04-09 14:02] VITALS: TEMP 98.1; BMI 31.3
[2018-04-09] MEDS ORDERED: ALBUTEROL SO4 2.5/IPRATROPIUM 0.5 INH SOL 3 ML VIAL.NEB. NEB ONE ×2 (14:05→15:19)
[2018-04-09] MEDS ORDERED: VANCOMYCIN 1,500 MG in DEXTROSE 5%-WATER - 500 ML IVPB ONE (15:15)
[2018-04-09] MEDS ORDERED: NOREPINEPHRINE BITARTRATE 8,000 MCG in DEXTROSE 5%-WATER - 492 ML IV SCH ×2 (15:15→18:30)
--- NOTE | 2018-04-09 15:19 | PDOC ---
History of Present Illness - General Chief Complaint: Shortness of Breath Stated Complaint: SOB, ABDOMINAL DISCOMFORT Time Seen by Provider: 04/09/18 13:58 - History of Present Illness Initial Comments: 04/09/18 15:51 The patient is an 83 year old male with a history of HTN, HLD, COPD, Lymphoma who presents for evaluation of difficulty breathing. The patient presents from his NH for difficulty breathing and poorly described abdominal pain. On presentation to the ED, the patient was noted to have a blood pressure of 54/30 and poorly responsive on exam. The patient is unable to participate further in the history due to the severity of his clinical picture. The patient is unable to participate in ROS. Past History - Past Medical History Allergies/Adverse Reactions: Allergies Allergy/AdvReac Type Severity Reaction Status Date / Time No Known Allergies Allergy Verified 03/21/18 08:38 Home Medications: Ambulatory Orders Lisinopril [Prinivil] 20 mg PO DAILY 02/09/17 Budesonide/Formeterol Fumarate [SYMBICORT 160/4.5mcg -] 1 inh PO DAILY #1 cannister 02/12/17 Atorvastatin Ca [Lipitor] 40 mg PO HS 03/21/18 Famotidine [Pepcid] 20 mg PO BID #28 tablet 03/21/18 Levothyroxine [Synthroid -] 112 mcg PO DAILY@0700 03/21/18 Acetaminophen [Tylenol .Regular Strength -] 650 mg PO Q6H PRN tablet 04/03/18 Aspirin [ASA -] 81 mg PO DAILY #7 tab.chew 04/03/18 Docusate Sodium [Colace -] 100 mg PO TID capsule 04/03/18 Oxycodone HCl/Acetaminophen [Percocet 5-325 mg Tablet] 1 tab PO Q6H PRN #20 tablet MDD 4 tabs 04/03/18 Polyethylene Glycol 3350 [Miralax (For Daily Use) -] 17 gm PO DAILY #1 bottle Anemia: No Asthma: No Cancer: Yes (lmyphoma) Cardiac Disorders: No CVA: No COPD: Yes CHF: No Dementia: No Diabetes: No GI Disorders: No Disorders: No HTN: Yes Hypercholesterolemia: Yes Liver Disease: No Seizures: Yes (hyperthyroid) Thyroid Disease: Yes - Surgical History Abdominal Surgery: No Appendectomy: No Cardiac Surgery: No Cholecystectomy: No Lung Surgery: No Neurologic Surgery: No - Suicide/Smoking/Psychosocial Hx Smoking History: Unknown if ever smoked Have you smoked in the past 12 months: No Number of Cigarettes Smoked Daily: 20 If you are a former smoker, when did you quit?: 2017 Information on smoking cessation initiated: No 'Breaking Loose' booklet given: 02/10/17 Hx Alcohol Use: No Drug/Substance Use Hx: No Substance Use Type: None Review of Systems - Review of Systems Able to Perform ROS?: No (Critical patient) *Physical Exam - Vital Signs Last Vital Signs Temp Pulse Resp BP Pulse Ox 98.1 F 79 18 51/37 96 04/09/18 13:15 04/09/18 13:15 04/09/18 13:15 04/09/18 13:15 04/09/18 13:15 - Physical Exam Comments: 04/09/18 16:01 General Appearance: Nourished. In Severe Apparent Distress HEENT:No Pharyngeal Erythema, Tonsillar Exudate, Tonsillar Erythema Neck: No Cervical Lymphadenopathy Respiratory/Chest: Bilateral crackles noted on exam worse on the left. Poor Respiratory Effort. No Rhonchi, Wheezing Cardiovascular: Regular Rhythm, Regular Rate. No Murmur, Gallops, Rubs Gastrointestinal/Abdominal: Distended abdomen diffusely tender to palpation on exam with diminished bowel sounds. No Guarding, Rebound, Musculoskeletal: No CVA Tenderness Extremity: Diminished Capillary Refill, Bruising noted to the right lower extremity. Integumentary: Normal Color, Dry, Warm Neurologic: Minimally Responsive to Sternal Rub on Exam. Procedures - Central Line Central Line Lumen: triple Central Line Position: femoral (L) Anesthesia: 1% Lidocaine Amount of anesthesia (ccs): 6 Complications: 3 Attempts made with successful third attempt Post Central Line Insertion: sutured, good blood return ED Treatment Course - LABORATORY CBC & Chemistry Diagram: 04/09/18 15:00 04/09/18 15:00 Medical Decision Making - Critical Care Time Total Critical Care Time (minutes): 90 Critical Care Statement: The care of this patient involved high complexity decision making to prevent further life threatening deterioration of the patient 's condition and/or to evaluate & treat vital organ system(s) failure or risk of failure. - Medical Decision Making 04/09/18 16:06 The patient is an 83 year old male with a history of HTN, HLD, COPD, Lymphoma who presents for evaluation of difficulty breathing. Differential includes but is not limited to: Sepsis, Pneumonia, Intra-abdominal pathology, infectious , metabolic derangement. The patient appears critical on exam with poor respiratory effort. The patient is DNR/DNI per paperwork. Central line was placed in the left femoral region and dopamine and levophed were started to maintaine blood pressure of 80s systolic. Vancomycin was started for antibiotic coverage. We will hold off on iv fluids at this time as the patient appears fluid overloaded with possible pulmonary edema. The patient will likely require ICU admission. Poor prognosis given his clinical presentation. We will continue to closely monitor and reassess while here in the ED. 04/09/18 17:59 CBC demonstrates an elevated wbc to 16. CMP demonstrates an elevated creatinine to 10.4 with a lactic acid of 4.3. The patient's blood pressure has not improved with maximal dose of levophed. After extensive discussion with the family, the decision was made to transition the patient over to comfort care. We discussed the case with the hospitalist team who accepted the patient for admission to the floor. We will discontinue all medications and place the patient on a morphine drip titrated for comfort. 04/09/18 19:47 Called to the room to evaluate the patient. The patient was unresponsive on exam and did not respond to voice or sternal rub. Pupils were fixed and dilated. Breath sounds were absent bilaterally with no respiratory effort. Heart sounds were absent on auscultation. Carotid pulses were absent. The patient was pronounced at 19:47. Family was present at the bedside during pronouncement. budget examiner's office was notified. The patient's primary care provider was notified. *DC/Admit/Observation/Transfer Diagnosis at time of Disposition: PAM (acute kidney injury) Sepsis Qualifiers: Sepsis type: sepsis due to unspecified organism Qualified Code(s): A41.9 - Sepsis, unspecified organism - Discharge Dispostion Disposition: Condition at time of disposition: Critical Decision to Admit order: Yes - Referrals - Patient Instructions - Post Discharge Activity
[2018-04-09] MEDS ORDERED: PIPERACILLIN/TAZOB 3.375 GM 3.375 GM/50 ML BAG IVPB ONE (15:29)
[2018-04-09] MEDS ORDERED: DOPAMINE 400 MG/D5W - 400,000 MCG/250 ML INFUS.BAG IVPB SCH (15:30)
[2018-04-09 15:41] LABS: BASO % 0.3 % (0-2.0); EOS % 0.1 % (0-4.5); HEMOGLOBIN 9.8 GM/dL (11.7-16.9); LYMPH % 6.4 % (8-40); MCH 29.6 pg (25.7-33.7); MCHC 32.7 g/dl (32.0-35.9); MEAN CELL VOLUME 90.3 fl (80-96); MEAN PLT VOLUME 6.8 fl (7.5-11.1); MONO % 6.2 % (3.8-10.2); PLATELET COUNT 656 K/MM3 (134-434); RBC 3.33 M/mm3 (4.00-5.60); RDW 15.3 % (11.9-15.9); WHITE BLOOD COUNT 16.8 K/mm3 (4.0-10.0)
[2018-04-09 15:46] LABS: VENOUS PH 7.03 (7.32-7.42); VENOUS PO2 39.2 mmHg (28-48)
[2018-04-09 16:05] LABS: CHLORIDE 102 mmol/L (98-107); SODIUM 134 mmol/L (136-145)
[2018-04-09 16:12] LABS: ALBUMIN 2.3 g/dl (3.4-5.0); ALK PHOS 217 U/L (45-117); ANION GAP 20 (8-16); BILIRUBIN,TOTAL 0.6 mg/dL (0.2-1.0); CALCIUM 8.1 mg/dL (8.5-10.1); CO2 12 mmol/L (21-32); GLUCOSE,RANDOM 111 mg/dL (74-106); SGOT/AST 63 U/L (15-37); SGPT/ALT 10 U/L (12-78)
[2018-04-09 16:22] LABS: BLOOD UREA NITROGEN 140 mg/dL (7-18); CREATININE 10.4 mg/dL (0.7-1.3)
[2018-04-09 16:23] LABS: POTASSIUM 6.3 mmol/L (3.5-5.1)
[2018-04-09 16:36] LABS: INR 3.24 (0.82-1.09); PROTHROMBIN TIME (PATIENT) 36.6 SEC (9.7-13.0)
[2018-04-09 16:39] LABS: ACTIVATED PTT 30.3 SECONDS (26.9-34.4)
[2018-04-09 17:09] VITALS: PULSE 95
[2018-04-09] MEDS ORDERED: SODIUM BICARBONATE 8.4% 50 MEQ/50 ML DISP.SYRIN IVPUSH ONE ×2 (18:29→18:31)
[2018-04-09] MEDS ORDERED: INSULIN REGULAR HUMAN 100 UNITS/ML *VIAL IVPUSH ONE (18:29)
[2018-04-09] MEDS ORDERED: DEXTROSE 50%-WATER - 25 GM/50 ML VIAL IVPUSH ONE (18:29)
[2018-04-09] MEDS ORDERED: DEXTROSE 50%-WATER 25 GM/50 ML DISP.SYRIN ONE (18:52)
[2018-04-09] MEDS ORDERED: SODIUM BICARBONATE 8.4% - 50 ML ONE (18:53)
[2018-04-09] MEDS ORDERED: INSULIN REGULAR HUMAN 100 UNITS/ML *VIAL ONE (18:53)
[2018-04-09] MEDS ORDERED: MORPHINE 100 MG in SODIUM CHLORIDE 98 ML IVPB SCH ×2 (19:15→19:23)
[2018-04-09 19:24] VITALS: BP 116/74
--- NOTE | 2018-04-09 19:24 | PN ---
Teaching Attending Note Name of Resident: Inocente Carver ATTENDING PHYSICIAN STATEMENT I saw and evaluated the patient. I reviewed the resident's note and discussed the case with the resident. I agree with the resident's findings and plan as documented with exceptions below. SUBJECTIVE: 83 yom with PMHx of HTN, HLD, lymphoma s/p chemotherapy in remission, COPD, tobacco abuse, recently admitted to [facility] with comminuted right femur fx s/p gamma nail placement, brought in with dyspnea, abdominal pain, found with SBP 50s, had central line placed, maximized on levophed with SBP 80s. patient has DNR/DNI advance directives with anay Livingston as the HCP. Per family, reports of recent urinary retention and constipation. Further exam limited as patient agitated confused. OBJECTIVE: Vital Signs Period Temp Pulse Resp BP Sys/Hargrove Pulse Ox Last 24 Hr 98.1 F 79-114 18-35 51-116/36-74 84-96 Intake & Output 04/06/18 04/07/18 04/08/18 04/09/18 23:59 23:59 23:59 23:59 Weight 200 lb general: respiratory distress, agitated, confused and restless in bed neck: no JVD visualized Chest: bilatateral scattered rhonchi Abdomen:tense distended, tender all throughout, unable to appreciate bowel sounds Extremities: No edema Home Medications Medication Instructions Recorded Lisinopril [Prinivil] 20 mg PO DAILY 02/09/17 Budesonide/Formeterol Fumarate 1 inh PO DAILY #1 cannister 02/12/17 [SYMBICORT 160/4.5mcg -] Atorvastatin Ca [Lipitor] 40 mg PO HS 03/21/18 Famotidine [Pepcid] 20 mg PO BID #28 tablet 03/21/18 Levothyroxine [Synthroid -] 112 mcg PO DAILY@0700 03/21/18 Acetaminophen [Tylenol .Regular 650 mg PO Q6H PRN tablet 04/03/18 Strength -] Aspirin [ASA -] 81 mg PO DAILY #7 tab.chew 04/03/18 Docusate Sodium [Colace -] 100 mg PO TID capsule 04/03/18 Oxycodone HCl/Acetaminophen 1 tab PO Q6H PRN #20 tablet MDD 4 04/03/18 [Percocet 5-325 mg Tablet] tabs Polyethylene Glycol 3350 [Miralax 17 gm PO DAILY #1 bottle 04/03/18 (For Daily Use) -] Active Medications Morphine Sulfate 100 mg/ (Sodium Chloride) 100 mls @ 2 mls/hr IVPB TITR LON; Protocol Stop: 04/10/18 19:14 Lorazepam (Ativan Injection -) 0.5 mg IVPUSH Q6H PRN PRN Reason: ANXIETY Scopolamine HBr (Transderm-Scop -) 1 patch TD Q72H LON Laboratory Results - last 24 hr 04/09/18 04/09/18 04/09/18 15:00 15:00 15:00 WBC 16.8 H D RBC 3.33 L Hgb 9.8 L Hct 30.0 L MCV 90.3 MCH 29.6 MCHC 32.7 RDW 15.3 Plt Count 656 H D MPV 6.8 L Absolute Neuts (auto) 14.6 Neutrophils % 87.0 H Lymphocytes % 6.4 L D Monocytes % 6.2 Eosinophils % 0.1 Basophils % 0.3 Nucleated RBC % 0 PT with INR 36.60 H INR 3.24 H D PTT (Actin FS) 30.3 D VBG pH 7.03 L* POC VBG pCO2 46.0 POC VBG pO2 39.2 Mixed VBG HCO3 11.6 L* Sodium Potassium Chloride Carbon Dioxide Anion Gap BUN Creatinine Creat Clearance w eGFR Random Glucose Lactic Acid Calcium Total Bilirubin AST ALT Alkaline Phosphatase Troponin I Total Protein Albumin 04/09/18 04/09/18 15:00 15:00 WBC RBC Hgb Hct MCV MCH MCHC RDW Plt Count MPV Absolute Neuts (auto) Neutrophils % Lymphocytes % Monocytes % Eosinophils % Basophils % Nucleated RBC % PT with INR INR PTT (Actin FS) VBG pH POC VBG pCO2 POC VBG pO2 Mixed VBG HCO3 Sodium 134 L Potassium 6.3 H* D Chloride 102 Carbon Dioxide 12 L D Anion Gap 20 H BUN 140 H* D Creatinine 10.4 H* D Creat Clearance w eGFR 4.80 Random Glucose 111 H Lactic Acid 4.8 H* Calcium 8.1 L Total Bilirubin 0.6 D AST 63 H D ALT 10 L D Alkaline Phosphatase 217 H D Troponin I 0.03 D Total Protein 6.0 L Albumin 2.3 L D CXR; ?LLL infiltrate Abdomen xray - markedly distended bowel loops, ?obstruction EKG: low voltage, limited given artefact ASSESSMENT AND PLAN: 83 yom with severe septic shock, PAM, hyperkalemia, lactic acidosis -Septic shock, ?HCAP vs complicated UTI, vs acute abdomen, ?Ileus vs Bowel obstruction with inflammation -Acute hypoxic respiratory failure -PAM, likely from septic shock, poor oral intake and urinary retention -Hyperkalemia, due to above -Lactic acidosis Plan: patient in marked respiratory distress with tense distended abdomen with persistent hypoxia on pressors, PAM, hyperkalemia with overall poor prognosis. Unable to get additional additional imaging or intervention due to unstable hemodynamics. Extensive discussion held with HCP Yara and family at bedside. Explained current septic shock, multiorgan failure, with respiratory distress, PAM with hyperkalemia and not likely a HD candidate given his current comorbidities. Overall very poor prognosis and high mortality risk. HCP and family in agreement, do not want patient to suffer, agree with comfort measures only. Also explained, Comfort measures might expedite the underlying progress . Agree with morphine drip, ativan and comfort measures. Plan discussed with ED attending and Nursing. total admit time 65 min.
[2018-04-09] MEDS ORDERED: SCOPOLAMINE HYDROBROMIDE 1 PATCH PATCH.TD72 TD SCH (19:30)
--- NOTE | 2018-04-09 19:42 | HP ---
CHIEF COMPLAINT: abd pain, AMS PCP: Porter Foreman MD [Primary Care Provider] HISTORY OF PRESENT ILLNESS: 83 y/o M w/PMH of HTN, HLD, lymphoma s/p chemo (in remission), hypothyroidism, COPD, recent R femur fracture (at [facility] 03/31 - 04/03, d/c'd to [facility]) presents to ER with abd pain and AMS according to family at bedside. Pt unable to give hx to AMS. According to family they noted that patient had not had urinated for multiple days at NC and was constipated for multiple days despite being given enema. Pt's mental status began to worsen yesterday and he "was not himself yesterday" and today he was noted to have worsening of his mental status and was becoming agitated. He was noted to also be complaining of abd pain but otherwise due to pt's mental status further history was difficult to obtain. At this time pt is agitated and constantly shifting in bed and taking off NRB mask. He responds to his name and when asked if he is any pain, says "no ". Further hx could not be obtained. ER course was notable for: (1) Vanc/zosyn, norepi, duonebs (2) CXR, KUB flat plate (3) Recent Travel: denies PAST MEDICAL HISTORY:HTN, HLD, lymphoma s/p chemo (in remission), hypothyroidism , COPD, recent R femur fracture (at [facility] 03/31 - 04/03, d/c'd to [facility]) PAST SURGICAL HISTORY: 03/2018: R femoral fracture s/p R gamma nail Social History: Smoking: Was smoking 4 cig until last admission Alcohol: None Drugs: None Family History: n-c Allergies No Known Allergies Allergy (Verified 03/21/18 08:38) HOME MEDICATIONS: Home Medications Medication Instructions Recorded Lisinopril [Prinivil] 20 mg PO DAILY 02/09/17 Budesonide/Formeterol Fumarate 1 inh PO DAILY #1 cannister 02/12/17 [SYMBICORT 160/4.5mcg -] Atorvastatin Ca [Lipitor] 40 mg PO HS 03/21/18 Famotidine [Pepcid] 20 mg PO BID #28 tablet 03/21/18 Levothyroxine [Synthroid -] 112 mcg PO DAILY@0700 03/21/18 Acetaminophen [Tylenol .Regular 650 mg PO Q6H PRN tablet 04/03/18 Strength -] Aspirin [ASA -] 81 mg PO DAILY #7 tab.chew 04/03/18 Docusate Sodium [Colace -] 100 mg PO TID capsule 04/03/18 Oxycodone HCl/Acetaminophen 1 tab PO Q6H PRN #20 tablet MDD 4 04/03/18 [Percocet 5-325 mg Tablet] tabs Polyethylene Glycol 3350 [Miralax 17 gm PO DAILY #1 bottle 04/03/18 (For Daily Use) -] REVIEW OF SYSTEMS Unable to obtain due to AMS PHYSICAL EXAMINATION Vital Signs - 24 hr 04/09/18 04/09/18 04/09/18 13:15 13:30 14:00 Temperature 98.1 F Pulse Rate 79 Pulse Rate [ 112 H 106 H Apical] Respiratory 18 30 H 26 H Rate Blood Pressure 51/37 Blood Pressure 54/36 62/45 [Right] O2 Sat by Pulse 96 84 L 90 L Oximetry (%) 04/09/18 04/09/18 04/09/18 14:30 15:00 15:30 Temperature Pulse Rate Pulse Rate [ 114 H 109 H 110 H Apical] Respiratory 26 H 30 H 30 H Rate Blood Pressure Blood Pressure 65/52 88/66 84/62 [Right] O2 Sat by Pulse 94 L 92 L 90 L Oximetry (%) 04/09/18 04/09/18 04/09/18 15:57 16:00 16:30 Temperature Pulse Rate 114 H Pulse Rate [ 112 H 95 H Apical] Respiratory 34 H 35 H Rate Blood Pressure Blood Pressure 82/54 [Right] O2 Sat by Pulse 92 L 85 L 96 Oximetry (%) GENERAL: Awake, agitated, agonal breathing, continuously pulls off NRB mask. Cannot follow basic commands. Altered mental status HEAD: Normal with no signs of trauma. EYES: Pupils equal, round and reactive to light EARS, NOSE, THROAT: Ears normal, nares patent LUNGS: B/L crackles auscultated anteriorly HEART: Difficult to auscultate over breath sounds. ABDOMEN: Distended, TTP in all 4 quadrants, hypoactive BS LOWER EXTREMITIES: warm, well-perfused. No peripheral edema. NEUROLOGICAL: AMS PSYCHIATRIC: AMS SKIN: Warm, dry Laboratory Results - last 24 hr 04/09/18 04/09/18 04/09/18 15:00 15:00 15:00 WBC 16.8 H D RBC 3.33 L Hgb 9.8 L Hct 30.0 L MCV 90.3 MCH 29.6 MCHC 32.7 RDW 15.3 Plt Count 656 H D MPV 6.8 L Absolute Neuts (auto) 14.6 Neutrophils % 87.0 H Lymphocytes % 6.4 L D Monocytes % 6.2 Eosinophils % 0.1 Basophils % 0.3 Nucleated RBC % 0 PT with INR 36.60 H INR 3.24 H D PTT (Actin FS) 30.3 D VBG pH 7.03 L* POC VBG pCO2 46.0 POC VBG pO2 39.2 Mixed VBG HCO3 11.6 L* Sodium Potassium Chloride Carbon Dioxide Anion Gap BUN Creatinine Creat Clearance w eGFR Random Glucose Lactic Acid Calcium Total Bilirubin AST ALT Alkaline Phosphatase Troponin I Total Protein Albumin 04/09/18 04/09/18 15:00 15:00 WBC RBC Hgb Hct MCV MCH MCHC RDW Plt Count MPV Absolute Neuts (auto) Neutrophils % Lymphocytes % Monocytes % Eosinophils % Basophils % Nucleated RBC % PT with INR INR PTT (Actin FS) VBG pH POC VBG pCO2 POC VBG pO2 Mixed VBG HCO3 Sodium 134 L Potassium 6.3 H* D Chloride 102 Carbon Dioxide 12 L D Anion Gap 20 H BUN 140 H* D Creatinine 10.4 H* D Creat Clearance w eGFR 4.80 Random Glucose 111 H Lactic Acid 4.8 H* Calcium 8.1 L Total Bilirubin 0.6 D AST 63 H D ALT 10 L D Alkaline Phosphatase 217 H D Troponin I 0.03 D Total Protein 6.0 L Albumin 2.3 L D Imaging: CXR: 04/09/18: Possible LLL infiltrate KUB flat plate: 04/09/18: Impression - Markedly limited study with distended bowel loops suggesting at least a partial obstruction. EKG: Sinus rhythm with PACs. LAD. Vent Rate: 96 bpm. QTc 437 ms Active Medications Morphine Sulfate 100 mg/ (Sodium Chloride) 100 mls @ 2 mls/hr IVPB TITR LON; Protocol Stop: 04/10/18 19:14 Lorazepam (Ativan Injection -) 0.5 mg IVPUSH Q6H PRN PRN Reason: ANXIETY Scopolamine HBr (Transderm-Scop -) 1 patch TD Q72H [facility] ASSESSMENT/PLAN: 83 y/o M w/PMH of HTN, HLD, lymphoma s/p chemo (in remission), hypothyroidism, COPD, recent R femur fracture (at [facility] 03/31 - 04/03, d/c'd to [facility]) presents to ER with abd pain and AMS. -Acute metabolic encephalopathy secondary to septic shock -Septic shock likely due to LLL Pna vs abd infection -CT scan of abd cannot be done at this time as pt is not stable for CT at this time -Extensive discussion was had with family including health care proxy (Yara ) with me and Dr. Saavedra of pts current condition. Pt is currently in renal failure, has agonal breathing, low O2 saturation despite NRB, and extremely agitated. BP also not being picked up by automatic cuff despite max dose of norepi. Pt is in septic shock and this is the cause of his current presentation. This was explained to healthcare proxy and family. -Health care proxy states that pt would not have liked to suffer and would like the patient to be placed on comfort care at this time. -Morphine drip starting at 2mg /hr started and to be titrated up for comfort -Ativan 0.5 mg IV PRN for anxiety -Scopolamine patch q72 hrs -Other medications to be stopped including Abx -PAM on CKD secondary to septic shock -On comfort measures -HTN -currently in septic shock, on comfort measures -HLD -on comfort measures, will not restart meds at this time -COPD -on comfort measures -FEN -No fluids at this time -No more blood draws as pt is on comfort care -Code Status: DNR/DNI -Dispo: Comfort Measures. Can be monitored on floors. Visit type - Emergency Visit Emergency Visit: Yes ED Registration Date: 04/09/18 Care time: The patient presented to the Emergency Department on the above date and was hospitalized for further evaluation of their emergent condition. - New Patient This patient is new to me today: Yes Date on this admission: 04/10/18 - Critical Care Critical Care patient: Yes Total Critical Care Time (in minutes): 45 Critical Care Statement: The care of this patient involved high complexity decision making to prevent further life threatening deterioration of the patient 's condition and/or to evaluate & treat vital organ system(s) failure or risk of failure. Hospitalist Screening - Colonoscopy Questionnaire Colonoscopy Questionnaire: Colonoscopy Questionnaire - Patient: 50 - 75 years old and never had a screening colonoscopy: Unknown History of colon or rectal polyps, or CA: Unknown History of IBD, Crohn's disease or UC: Unknown History of abdominal radiation therapy as a child: Unknown - Relative: 1 with colon or rectal CA, or polyps at age 60 or younger: Unknown Colon or rectal CA diagnosed at age 45 or younger: Unknown Multiple relatives with colon or rectal CA: Unknown - Outcome: Screening Result: Negative Screen
--- NOTE | 2018-04-10 10:24 | EKG ---
Test Reason : Blood Pressure : / mmHG Vent. Rate : 096 BPM Atrial Rate : 096 BPM P-R Int : 182 ms QRS Dur : 082 ms QT Int : 346 ms P-R-T Axes : 043 -51 000 degrees QTc Int : 437 ms SINUS RHYTHM WITH PREMATURE ATRIAL COMPLEXES WITH ABERRANT CONDUCTION LEFT AXIS DEVIATION LOW VOLTAGE QRS INFERIOR INFARCT , AGE UNDETERMINED POSSIBLE ANTEROLATERAL INFARCT (CITED ON OR BEFORE 31-MAR-2018) ABNORMAL ECG WHEN COMPARED WITH ECG OF 09-APR-2018 13:30, ABERRANT CONDUCTION IS NOW PRESENT POOR DATA QUALITY, INTERPRETATION MAY BE ADVERSELY AFFECTED Confirmed by EVERT FUNEZ MD ([id number]) on 04/10/2018 10:24:18 AM Referred By: Confirmed By:EVERT FUNEZ MD
--- NOTE | 2018-04-10 10:27 | EKG ---
Test Reason : Blood Pressure : / mmHG Vent. Rate : 080 BPM Atrial Rate : 080 BPM P-R Int : 180 ms QRS Dur : 084 ms QT Int : 402 ms P-R-T Axes : 018 -40 004 degrees QTc Int : 463 ms NORMAL SINUS RHYTHM LEFT AXIS DEVIATION LOW VOLTAGE QRS POSSIBLE ANTEROLATERAL INFARCT (CITED ON OR BEFORE 31-MAR-2018) ABNORMAL ECG WHEN COMPARED WITH ECG OF 31-MAR-2018 15:31, NONSPECIFIC T WAVE ABNORMALITY HAS REPLACED INVERTED T WAVES IN LATERAL LEADS QT HAS LENGTHENED Confirmed by EVERT FUNEZ MD ([id number]) on 04/10/2018 10:26:54 AM Referred By: Confirmed By:EVERT FUNEZ MD
--- NOTE | 2018-04-10 14:20 | DS ---
Physical Exam: SUBJECTIVE: Patient pronounced at 19:47 04/09/18. OBJECTIVE: Vital Signs Period Temp Pulse Resp BP Sys/Hargrove Pulse Ox Last 24 Hr 95-114 26-35 65-116/52-74 85-96 LABS Laboratory Results - last 24 hr 04/09/18 04/09/18 04/09/18 15:00 15:00 15:00 WBC 16.8 H D RBC 3.33 L Hgb 9.8 L Hct 30.0 L MCV 90.3 MCH 29.6 MCHC 32.7 RDW 15.3 Plt Count 656 H D MPV 6.8 L Absolute Neuts (auto) 14.6 Neutrophils % 87.0 H Lymphocytes % 6.4 L D Monocytes % 6.2 Eosinophils % 0.1 Basophils % 0.3 Nucleated RBC % 0 PT with INR 36.60 H INR 3.24 H D PTT (Actin FS) 30.3 D VBG pH 7.03 L* POC VBG pCO2 46.0 POC VBG pO2 39.2 Mixed VBG HCO3 11.6 L* Sodium Potassium Chloride Carbon Dioxide Anion Gap BUN Creatinine Creat Clearance w eGFR Random Glucose Lactic Acid Calcium Total Bilirubin AST ALT Alkaline Phosphatase Troponin I Total Protein Albumin 04/09/18 04/09/18 15:00 15:00 WBC RBC Hgb Hct MCV MCH MCHC RDW Plt Count MPV Absolute Neuts (auto) Neutrophils % Lymphocytes % Monocytes % Eosinophils % Basophils % Nucleated RBC % PT with INR INR PTT (Actin FS) VBG pH POC VBG pCO2 POC VBG pO2 Mixed VBG HCO3 Sodium 134 L Potassium 6.3 H* D Chloride 102 Carbon Dioxide 12 L D Anion Gap 20 H BUN 140 H* D Creatinine 10.4 H* D Creat Clearance w eGFR 4.80 Random Glucose 111 H Lactic Acid 4.8 H* Calcium 8.1 L Total Bilirubin 0.6 D AST 63 H D ALT 10 L D Alkaline Phosphatase 217 H D Troponin I 0.03 D Total Protein 6.0 L Albumin 2.3 L D HOSPITAL COURSE: Date of Admission:04/09/18 Date of Discharge: 04/10/18 83 y/o M w/PMH of HTN, HLD, lymphoma s/p chemo (in remission), hypothyroidism, COPD, recent R femur fracture (at [facility] 03/31 - 04/03, d/c'd to [facility]) presents to ER with abd pain and altered mental status according to family. Pt was initially treated with vanco/zosyn, and required norepi for blood pressure support. Pt's labs indicated he was in multiorgan failure secondary to septic shock with hyperkalemia at 6.3, had PAM with Cr of 10.4, elevated WBC at 16.8, INR of 3.24. CXR showed likely LLL pna. Pt also had distended bowel and KUB flat plate showed likely ileus. Despite pressor support and medical therapy pt continued to show worsening hypoxic respiratory failure. Extensive discussion was had with family and healthcare proxy Yara who said pt would like to have been on comfort care at this time. Medical treatment was stopped and patient was placed on comfort care in accordance to HCP with morphine drip. Pt was pronounced at 19:47 on 04/09/18. Minutes to complete discharge: 30 Discharge Summary Reason For Visit: ACUTE KIDNEY INJURY,SEPSIS Condition: - Instructions Referrals: Juanpablo Ying MD [Primary Care Provider] - Disposition: - Home Medications Comprehensive Discharge Medication List: Ambulatory Orders Lisinopril [Prinivil] 20 mg PO DAILY 02/09/17 Budesonide/Formeterol Fumarate [SYMBICORT 160/4.5mcg -] 1 inh PO DAILY #1 cannister 02/12/17 Atorvastatin Ca [Lipitor] 40 mg PO HS 03/21/18 Famotidine [Pepcid] 20 mg PO BID #28 tablet 03/21/18 Levothyroxine [Synthroid -] 112 mcg PO DAILY@0700 03/21/18 Acetaminophen [Tylenol .Regular Strength -] 650 mg PO Q6H PRN tablet 04/03/18 Aspirin [ASA -] 81 mg PO DAILY #7 tab.chew 04/03/18 Docusate Sodium [Colace -] 100 mg PO TID capsule 04/03/18 Oxycodone HCl/Acetaminophen [Percocet 5-325 mg Tablet] 1 tab PO Q6H PRN #20 tablet MDD 4 tabs 04/03/18 Polyethylene Glycol 3350 [Miralax (For Daily Use) -] 17 gm PO DAILY #1 bottle This patient is new to me today: No Emergency Visit: Yes ED Registration Date: 04/09/18 Care time: The patient presented to the Emergency Department on the above date and was hospitalized for further evaluation of their emergent condition. Critical Care patient: Yes Total Critical Care Time (in minutes): 30 Critical Care Statement: The care of this patient involved high complexity decision making to prevent further life threatening deterioration of the patient 's condition and/or to evaluate & treat vital organ system(s) failure or risk of failure. - Discharge Referral Referred to [facility] No
== END 2018-04-09 19:47 | disposition expired | DRG 871 ==
LOC: JER 13:13 → JERBED 18:45
PROVIDERS: ADMIT Hospitalist; ATTEND Hospitalist
PROC: 06HN33Z Insertion of Infusion Device into Left Femoral Vein, Percutaneous Approach (ICD-10-PCS; principal; 2018-04-09)
DX: A41.9 Sepsis, unspecified organism (principal); R65.21 Severe sepsis with septic shock; J96.01 Acute respiratory failure with hypoxia; J18.9 Pneumonia, unspecified organism; G93.41 Metabolic encephalopathy; C85.90 Non-Hodgkin lymphoma, unspecified, unspecified site; N17.9 Acute kidney failure, unspecified; E87.2 Acidosis; K56.7 Ileus, unspecified; E78.5 Hyperlipidemia, unspecified; J44.9 Chronic obstructive pulmonary disease, unspecified; E03.9 Hypothyroidism, unspecified; I12.9 Hypertensive chronic kidney disease with stage 1 through stage 4 chronic kidney disease, or unspecified chronic kidney disease; N18.9 Chronic kidney disease, unspecified; Z66 Do not resuscitate; E87.5 Hyperkalemia
CPT/HCPCS: 36415; 71045-TC-FY; 74018-TC-FY; 80053; 82803; 83605; 84484; 85025; 85610; 85730; 87040; 93005; 93010; 99285-25; J7620